=== PATIENT | female | born 1975 | race Two or more races ===

== ENCOUNTER 2022-02-04 13:27 | Outpatient (REF) | payer OTHER, SELFPAY ==
[2022-02-04 13:42] LABS: MANUAL DIFF FLAG NO
[2022-02-04 13:55] LABS: Basophils Absolute Auto 0.1 X10*3/uL (0.0-0.2); Eosinophils Absolute Auto 0.1 X10*3/uL (0.0-0.4); Eosinophils Percent Auto 1.9 % (0-4); Hemoglobin 12.5 g/dl (12.0-16.0); Imm Gran Abs Auto 0.02 X10*3/uL (0.00-0.03); Imm Gran Pct Auto 0.3 % (0.0-0.4); Lymphocytes Absolute Auto 2.2 X10*3/uL (1.2-4.9); Lymphocytes Percent Auto 35.7 % (20-40); Mean Corpuscular HGB Conc 32.1 g/dl (31.0-35.0); Mean Corpuscular Hemoglobin 28.6 pg (27.0-33.0); Mean Corpuscular Volume 89.2 fL (80.0-98.0); Mean Platelet Volume 10.4 fL (9.4-12.3); Monocytes Absolute Auto 0.4 X10*3/uL (0.1-1.2); Neutrophils Absolute Auto 3.4 x10*3/uL (2.0-8.3); Neutrophils Percent Auto 54.1 % (45-73); Platelet Count 290 X10*3/uL (160-400); Red Blood Count 4.37 X10*6/uL (4.20-5.50); Red Cell Distribution Width 12.1 % (11.0-16.0); White Blood Count 6.3 X10*3/uL (4.8-10.8)
[2022-02-04 14:08] LABS: Alanine Aminotransferase 13 U/L (0-31); Albumin Level 4.4 g/dL (3.5-5.0); Alkaline Phosphatase 65 U/L (39-117); Anion Gap 12 (12-20); Aspartate Amino Transferase 13 U/L (5-31); Bilirubin Total 0.4 mg/dL (0.0-1.0); Blood Urea Nitrogen 14 mg/dL (9-16); Calcium 9.5 mg/dL (8.4-10.2); Carbon Dioxide 28 mmol/L (22-29); Chloride 104 mmol/L (96-108); Cholesterol 244 mg/dL; Estimated Glomerular Filt Rate > 60; Glucose Fasting 82 mg/dL (60-99); HDL Cholesterol 48 mg/dL; LDL Cholesterol Calculated 167 mg/dl; Potassium 4.4 mmol/L (3.3-5.1); Sodium 140 mmol/L (135-145); Total Protein 7.6 g/dL (6.5-8.0); Triglycerides 146 mg/dL
[2022-02-04 14:28] LABS: Thyroid Stimulating Hormone 2.35 uIU/mL (0.32-4.0)
== END 2022-02-04 13:28 | disposition home or self-care (01) ==
LOC: HO.LAB 13:27
PROVIDERS: PCP Internal Medicine; Visit Provider Internal Medicine
DX: Z00.00 Encounter for general adult medical examination without abnormal findings (principal); Z13.0 Encounter for screening for diseases of the blood and blood-forming organs and certain disorders involving the immune mechanism
CPT/HCPCS: 36415; 80053; 80061; 84443; 85025

== ENCOUNTER 2023-06-13 10:47 | Outpatient (REF) | payer OTHER, SELFPAY ==
[2023-06-13 10:56] LABS: MANUAL DIFF FLAG NO
[2023-06-13 11:05] LABS: Basophils Absolute Auto 0.1 X10*3/uL (0.0-0.2); Basophils Percent Auto 0.9 % (0-2); Eosinophils Absolute Auto 0.2 X10*3/uL (0.0-0.4); Eosinophils Percent Auto 3.6 % (0-4); Hematocrit 39.8 % (37.0-47.0); Hemoglobin 13.1 g/dl (12.0-16.0); Imm Gran Abs Auto 0.02 X10*3/uL (0.00-0.03); Imm Gran Pct Auto 0.3 % (0.0-0.4); Lymphocytes Absolute Auto 2.4 X10*3/uL (1.2-4.9); Lymphocytes Percent Auto 35.9 % (20-40); Mean Corpuscular HGB Conc 32.9 g/dl (31.0-35.0); Mean Corpuscular Hemoglobin 28.7 pg (27.0-33.0); Mean Corpuscular Volume 87.3 fL (80.0-98.0); Mean Platelet Volume 9.9 fL (9.4-12.3); Monocytes Absolute Auto 0.4 X10*3/uL (0.1-1.2); Monocytes Percent Auto 6.1 % (2-11); Neutrophils Absolute Auto 3.6 x10*3/uL (2.0-8.3); Neutrophils Percent Auto 53.2 % (45-73); Platelet Count 285 X10*3/uL (160-400); Red Blood Count 4.56 X10*6/uL (4.20-5.50); Red Cell Distribution Width 12.2 % (11.0-16.0); White Blood Count 6.8 X10*3/uL (4.8-10.8)
[2023-06-13 12:20] LABS: Alanine Aminotransferase 17 U/L (0-31); Albumin Level 4.3 g/dL (3.5-5.0); Alkaline Phosphatase 68 U/L (39-117); Anion Gap 11 (12-20); Aspartate Amino Transferase 14 U/L (5-31); Bilirubin Total 0.5 mg/dL (0.0-1.0); Blood Urea Nitrogen 12 mg/dL (9-16); Calcium 9.6 mg/dL (8.4-10.2); Carbon Dioxide 26 mmol/L (22-29); Chloride 108 mmol/L (96-108); Cholesterol 322 mg/dL; Estimated Glomerular Filt Rate > 60; Glucose Fasting 94 mg/dL (60-99); HDL Cholesterol 48 mg/dL; LDL Cholesterol Calculated 244 mg/dl; Potassium 4.1 mmol/L (3.3-5.1); Sodium 141 mmol/L (135-145); Total Protein 7.6 g/dL (6.5-8.0); Triglycerides 153 mg/dL
[2023-06-13 12:34] LABS: Thyroid Stimulating Hormone 1.84 uIU/mL (0.32-4.0)
== END 2023-06-13 10:48 | disposition home or self-care (01) ==
LOC: HO.LAB 10:47
PROVIDERS: PCP Internal Medicine; Visit Provider Internal Medicine
DX: E78.5 Hyperlipidemia, unspecified (principal); N28.9 Disorder of kidney and ureter, unspecified; E03.9 Hypothyroidism, unspecified; D64.9 Anemia, unspecified
CPT/HCPCS: 36415; 80053; 80061; 84443; 85025

== ENCOUNTER 2023-06-19 12:34 | Outpatient (AMB) | payer OTHER, SELFPAY ==
--- NOTE | 2023-06-19 12:42 | A.OFFPC_ITS ---
Vital Signs 06/19/23 12:43 Height 5 ft 2.5 in Weight 176 lb 8 oz BMI 31.8 BP 130/60 Blood Pressure Location Lt brachial Position Sitting Pulse 78 Pulse Source Pulse Oximeter Pulse Oximetry (%) 98 Oxygen Delivery Method Room Air Intake Visit Reasons: Physical exam Intake Note: Patient is here today for a physical. 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 policy Accompanied by: Self / Same As Patient Allergies No Known Allergies Allergy (Verified 06/19/23 12:42) Medication List - Last Reconciled 06/19/23 by Vic Do MD albuterol sulfate 90 mcg/actuation (ProAir HFA) 2 puffs PO Q6H PRN paroxetine HCl 40 mg PO DAILY Tobacco use date assessed: 06/19/23 Dental Screening Dental Screen Date: 06/19/23 Did you have a dental visit in the last 12 months?: Yes Did you have a dental problem in the last 6 months where you did not have access to dental care?: No Was dental information given to patient?: Patient has dentist HPI Physical exam HPI Details mild asthma PFSH Medical History (Updated 06/19/23 @ 13:04 by Vic Do MD) Depression Obesity Surgical History No pertinent past surgical history Family History Mother No problems noted. Father No problems noted. Social History Housing: House Patient Tobacco Use Status: Never used Tobacco e-Cigarette/Vaping Use: Never Used Second Hand Smoke Exposure: No service: No Current occupational status: employed Cognitive needs: No Hearing needs: No Vision needs: Yes (reading glasses) Questionnaire Thrive Questionnaire Date Thrive assessed: 02/27/23 CHELSEA-7 AMB Questionnaire CHELSEA-7 Date CHELSEA - 7 assessed: 02/27/23 Source: Developed by Drs. Stefano Jeong, Shaunna Edgar, Yves Luciano and colleagues, with an educational olivier from [employer] Review of Systems Const Denies chills, Denies fatigue, Denies headache(s) and Denies weight loss Eyes Denies change in vision, Denies diplopia and Denies eye pain ENT Denies vertigo, Denies dizziness, Denies headache(s) and Denies nasal discharge Card Denies chest pain, Denies rapid heart rate and Denies dyspnea on exertion Resp Denies chest congestion, Denies cough, Denies pain with cough and Denies dyspnea on exertion GI Denies abdominal pain, Denies hematochezia and Denies change in bowel habits Musc Denies myalgias, Denies arthralgias and Denies joint swelling Skin/Breast Denies lesions and Denies unusual bruising Neuro Denies vertigo, Denies dizziness, Denies headache(s) and Denies focal weakness Endo Denies fatigue Physical exam (Primary Care) Vital Signs: Last Vital Signs Pulse 78 06/19/23 12:43 BP 130/60 06/19/23 12:43 Pulse Ox 98 06/19/23 12:43 Oxygen Delivery Method Room Air 06/19/23 12:43 BMI result Body Mass Index 31.8 Tobacco/Smoking Status: Tobacco use Status Tobacco use date assessed 06/19/23 06/19/23 12:47 Patient Tobacco Use Status Never used Tobacco 06/19/23 12:47 e-Cigarette/Vaping Use Never Used 06/19/23 12:47 Thrive Assessment: Date of Thrive Assessment Date Thrive assessed 02/27/23 06/19/23 12:47 Const General: cooperative, healthy appearing and no acute distress Orientation/consciousness: oriented to person, oriented to place and oriented to time [facility] Head: Yes normal to inspection, Yes normocephalic and Yes atraumatic Mouth: Normal oral and palatal mucosa present and tongue normal Throat: Yes posterior oropharynx normal and Yes uvula midline Eyes General: appearance normal, both eyes and all related structures Neck Neck: Yes normal visual inspection, Yes full ROM and Yes no lymphadenopathy Thyroid: Thyroid normal Carotids: normal carotid upstroke Chest Chest palpation & inspection: normal inspection of the chest Resp Effort & Inspection: normal respiratory effort and able to speak in complete sentences Auscultation: clear to auscultation bilaterally Cardio Jugular venous distension: no JVD Palpation: normal PMI Rate: regular rate Rhythm: regular rhythm Heart sounds: S1 normal heart sound present and S2 normal heart sound present GI Inspection: Yes normal to inspection Palpation (GI): Soft to palpation and No hepatosplenomegaly present Auscultation: normal bowel sounds General: Yes no CVA tenderness Back/Spine/Pelvis Back: no CVA tenderness Skin General skin exam: no rashes or lesions noted Neuro General: oriented to person, oriented to place and oriented to time Extrem General: Yes normal to inspection and Yes full ROM Assessment and Plan Assessment & Plan (1) Physical exam: Code(s): Z00.00 - Encounter for general adult medical examination without abnormal findings Plan: stable (2) Depression: Code(s): F32.A - Depression, unspecified Plan: same rx (3) Asthma: Code(s): J45.909 - Unspecified asthma, uncomplicated Plan: same rx Orders: Orders Lipid Panel Today E78.5 - Hyperlipidemia, unspecified MM tomosynthesis screen imp BI Today Z12.31 - Encounter for screening mammogram for malignant neoplasm of breast Referrals Gastroenterology Referral Z12.11 - Encounter for screening for malignant neoplasm of colon Coding Level of Care Code Est Pt Prev Care 40-64y(54575) Diagnoses Physical exam Z00.00 Depression F32.A Asthma J45.909
[2023-06-19 12:43] VITALS: BP 130/60; PULSE 78; O2SAT 98; BMI 31.8
== END 2023-06-19 12:57 | disposition home or self-care (01) ==
PROVIDERS: PCP Internal Medicine; Visit Provider Internal Medicine
DX: Z00.00 Encounter for general adult medical examination without abnormal findings (principal); F32.A Depression, unspecified; J45.909 Unspecified asthma, uncomplicated
CPT/HCPCS: 99396

== ENCOUNTER 2023-09-03 10:45 | Outpatient (AMB) | payer OTHER, SELFPAY ==
[2023-09-03 10:46] VITALS: BP 134/72; PULSE 84; O2SAT 97; BMI 31.3
--- NOTE | 2023-09-03 10:46 | A.OFFPC_ITS ---
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 policy Accompanied by: Self / Same As Patient Allergies No Known Allergies Allergy (Verified 09/03/23 10:47) Medication List - Last Reconciled 09/03/23 by Vic Do MD albuterol sulfate 90 mcg/actuation (ProAir HFA) 2 puffs PO Q6H PRN paroxetine HCl 40 mg PO DAILY Tobacco use date assessed: 06/19/23 Dental Screening Dental Screen Date: 09/03/23 Did you have a dental visit in the last 12 months?: No Did you have a dental problem in the last 6 months where you did not have access to dental care?: No Was dental information given to patient?: Patient has dentist HPI follow up HPI Details Had a FNA bx left breast at [facility] and they recommended seeing a surgeon for a Bx; I do not have any written rports on this yet [facility] Medical History Obesity Depression Surgical History No pertinent past surgical history Family History Mother No problems noted. Father No problems noted. Social History Housing: House Patient Tobacco Use Status: Never used Tobacco e-Cigarette/Vaping Use: Never Used Second Hand Smoke Exposure: No service: No Current occupational status: employed Cognitive needs: No Hearing needs: No Vision needs: Yes (reading glasses) Questionnaire PHQ-9 Over the last 2 weeks, how often have you been bothered by any of the following problems? 1. Little interest or pleasure in doing things: not at all 2. Feeling down, depressed, or hopeless: not at all 3. Trouble falling or staying asleep, or sleeping too much: not at all 4. Feeling tired or having little energy: not at all 5. Poor appetite or overeating: not at all 6. Feeling bad about yourself - or that you are a failure or have let yourself or your family down: not at all 7. Trouble concentrating on things, such as reading the newspaper or watching television: not at all 8. Moving or speaking so slowly that other people could have noticed. Or the opposite - being so fidgety or restless that you have been moving around a lot more than usual: not at all 9. Thoughts that you would be better off or of hurting yourself in some way: not at all Total score: 0 Depression Screening Interpretation: Negative Depression Screening Done: Yes 81426 - PHQ-9 Billing: Yes Source: Developed by Drs. Stefano Jeong, Shaunna Edgar, Yves Luciano and colleagues, with an educational olivier from [employer]. Thrive Questionnaire Date Thrive assessed: 02/27/23 AUDIT C Alcohol Use Questionnaire (AUDIT-C) 1. How often do you have a drink containing alcohol?: Never Total Score: 0 Score Reviewed/Action Taken: Yes CHELSEA-7 AMB Questionnaire CHELSEA-7 Date CHELSEA - 7 assessed: 02/27/23 Source: Developed by Drs. Stfeano Jeong, Shaunna Edgar, Yves Luciano and colleagues, with an educational olivier from [employer]. Review of Systems Const Denies chills, Denies headache(s) and Denies weight loss ENT Denies headache(s) Card Denies chest pain, Denies syncope, Denies irregular heart rhythm and Denies dyspnea Resp Denies chest congestion, Denies cough and Denies dyspnea GI Denies abdominal pain, Denies change in stool character, Denies nausea and Denies vomiting Musc Denies deformity and Denies joint swelling Neuro Denies syncope and Denies headache(s) Physical exam (Primary Care) Vital Signs: Last Vital Signs Pulse 84 09/03/23 10:46 BP 134/72 09/03/23 10:46 Pulse Ox 97 09/03/23 10:46 Oxygen Delivery Method Room Air 09/03/23 10:46 BMI result Body Mass Index 31.3 Tobacco/Smoking Status: Tobacco use Status Tobacco use date assessed 06/19/23 09/03/23 10:52 Patient Tobacco Use Status Never used Tobacco 09/03/23 10:52 e-Cigarette/Vaping Use Never Used 09/03/23 10:52 PHQ-9: PHQ-9 Score PHQ-9: Total score 0 09/03/23 10:52 Depression Screening Interpretation: Negative Thrive Assessment: Date of Thrive Assessment Date Thrive assessed 02/27/23 09/03/23 10:52 Const General: cooperative, comfortable and no acute distress HENMT Head: Yes normal to inspection Neck Neck: Yes normal visual inspection Chest Other: healing FNA site 12:00 left breast Assessment and Plan Assessment & Plan (1) Breast lesion: Code(s): N64.9 - Disorder of breast, unspecified Orders: Referrals General Surgery Referral N64.9 - Disorder of breast, unspecified Coding Level of Care Code Est Pt Level 3 (84746) Diagnoses Breast lesion N64.9
== END 2023-09-03 11:15 | disposition home or self-care (01) ==
PROVIDERS: PCP Internal Medicine; Visit Provider Internal Medicine
DX: N64.9 Disorder of breast, unspecified (principal)
CPT/HCPCS: 99213

== ENCOUNTER 2023-09-22 08:54 | Outpatient (AMB) | payer OTHER, SELFPAY ==
--- NOTE | 2023-09-22 08:57 | A.OFFVIS_ITS ---
Intake Vital Signs 3 09/22/23 09:03 Height 5 ft 2.5 in Weight 173 lb 15.821 oz BMI 31.3 BP 120/80 Blood Pressure Location Lt brachial Position Sitting Intake Visit Reasons: Disorder of breast Intake Note: Patient is seen in office for evaluation and treatment of disorder of the breast. 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 She subsequently [place] [facility] [place] pathology revealed focal atypical lobular hyperplasia. Surgical consultation was recommended. She reports a previous history of abnormal findings on her mammogram which was followed for several years with q.6 month x-rays. The current findings were felt to be significant change in felt to be high suspicion for malignancy therefore biopsy was recommended. She denies a previous history of breast surgery. She denies a family history of breast problems or breast cancer. She is with 1 daughter, 28 years old. She did not breast feed. [facility] [place] She presents today to discuss management of the atypical lobular hyperplasia. [facility] Medical History Obesity Depression Surgical History No pertinent past surgical history Family History Mother Skin cancer Father Stomach cancer Social History Housing: House Patient Tobacco Use Status: Never used Tobacco e-Cigarette/Vaping Use: Never Used Second Hand Smoke Exposure: No service: No Current occupational status: employed Cognitive needs: No Hearing needs: No Vision needs: Yes (reading glasses) Review of Systems Const All systems reviewed & are unremarkable except as noted in HPI and below Denies chills, Denies fever(s), Denies headache(s), Denies poor appetite and Denies weakness ENT Denies headache(s) Card Denies chest pain, Denies irregular heart rhythm, Denies palpitations and Denies dyspnea Resp Denies cough, Denies excessive phlegm production and Denies dyspnea GI Denies abdominal pain, Denies bloating, Denies change in bowel habits, Denies constipation, Denies heartburn, Denies diarrhea, Denies nausea and Denies vomiting Denies urinary frequency and Denies nipple discharge Musc Denies back pain, Denies muscle weakness and Denies numbness Skin/Breast Denies breast swelling, Reports breast pain, Denies breast mass, Denies changing lesions, Denies nipple discharge and Denies unusual bruising Neuro Denies headache(s), Denies numbness, Denies paresthesias and Denies weakness Psych Denies anxiety and Denies depression Endo Denies palpitations Giovanny/Lymph Denies lymphadenopathy Physical Exam Vital Signs: Last Vital Signs BP 120/80 09/22/23 09:03 BMI result Body Mass Index 31.3 Const General: cooperative and no acute distress Nutritional Appearance: well nourished Orientation/consciousness: patient oriented x3 Limitations: no limitations HEENT Head: Yes normocephalic and Yes atraumatic Ears: hearing grossly normal bilaterally Chest Other: Left breast: No skin change, no nipple retraction, no nipple discharge, no palpable mass, no enlarged lymph nodes. Right breast: No skin change, no nipple retraction, no nipple discharge, no palpable mass, no enlarged lymph nodes Chest/axillae images: 2 1. Biopsy site left breast Resp Effort & Inspection: normal respiratory effort, no audible wheezes, no cough and no respiratory distress Cardio Jugular venous distension: no JVD GI Inspection: Yes normal to inspection Skin Other: Warm, dry, no rash Neuro General: patient oriented x3 Extrem General: Yes no clubbing, cyanosis or edema Assessment & Plan Assessment & Plan (1) Atypical lobular hyperplasia (ALH) of left breast: Code(s): N60.92 - Unspecified benign mammary dysplasia of left breast Plan 48-year-old female patient presenting with a recent cluster of calcifications noted on mammogram felt to be high suspicion for malignancy. Subsequent stereotactic guided core biopsy of the left breast on 08/28/2023 revealed focal atypical lobular hyperplasia. On examination no suspicious findings are noted in either breast. I reviewed atypical lobular hyperplasia and recommended wider excision to assure complete removal. After discussion of the procedure, risks, and alternatives, patient has consented to a left breast lumpectomy with localizer placement as a short-stay surgery. Coding Level of Care Code New Pt Level 4 (75198) Diagnoses Atypical lobular hyperplasia (ALH) of left breast N60.92
[2023-09-22 09:03] VITALS: BP 120/80; BMI 31.3
== END 2023-09-22 09:34 | disposition home or self-care (01) ==
PROVIDERS: PCP Internal Medicine; Referring Provider Internal Medicine; Visit Provider Surgery
DX: N60.92 Unspecified benign mammary dysplasia of left breast (principal)
CPT/HCPCS: 99204

== ENCOUNTER → 2023-09-22 08:54 | Outpatient (BNVA) | payer OTHER, SELFPAY | PROVIDERS: PCP Internal Medicine; Referring Provider Internal Medicine; Visit Provider Surgery ==

== ENCOUNTER 2023-09-28 07:53 | Outpatient (REF) | payer OTHER, SELFPAY ==
--- NOTE | ~2023-09-28 | MM_ITS ---
EXAMINATION: MM MAMMOGRAM GUIDED RFID LOCALIZATION BREAST, LEFT CLINICAL INFORMATION: LCIS left breast upper slightly outer aspect, middle to anterior one third. Marked by a cylinder-shaped clip, for RFID localization. COMPARISON: 08/28/2023 stereotactic left breast biopsy. Mammography 07/15/2023, 07/04/2023, 12/15/2020, and 10/27/2018. TECHNIQUE NEEDLE LOC: Proper informed consent is obtained from the patient after discussion of the procedure, potential risks and complications, and alternatives including declining the procedure today. Patient was given an opportunity for questions. The patient appeared to understand. The patient consented to the procedure and signed the consent form. GUIDANCE: Digital mammography. APPROACH: Cranio-caudal. TARGET: Cylinder-shaped clip with a few remaining abutting calcifications. ANESTHESIA: lidocaine 1% with 1 mL bicarbonate: 10 mL. LOCALIZATION SYSTEM: -GetBulb LOCallizer Wire-Free Guidance System with 12g needle applicator. -Length: 7 cm. -RADIOFREQUENCY TAG: ID # [id number] DERMATOTOMY: Not necessary. RF Tag ID confirmed with LOCalizer Guidance System prior to placement. The skin is prepped and local anesthesia administered. The needle is positioned and RFID tag deployed. Final images demonstrate the LOCalizer RF tag to reside immediately anterior to the biopsy clip by approximately 3 mm. This is in good/acceptable position. The tag abuts a few remaining anterior calcifications. The patient tolerated the procedure well and had no immediate complications. Dressing placed and home instructions reviewed. MM/MM needle loc LT IMPRESSION: -Status post left breast RFID localization. Well-positioned RFID tag. No complications. -Final CC and ML images are marked/labeled for OR assistance.
[2023-09-28] MEDS: Lidocaine HCl 1 % 20 ML VIAL 9 ML SUBCUT (09:20)
[2023-09-28] MEDS: Sodium Bicarbonate 8.4% 50 MEQ/50 ML VIAL SUBCUT (09:21)
== END 2023-09-28 07:54 | disposition home or self-care (01) ==
LOC: HO.MAMMO 07:53
PROVIDERS: Visit Provider Surgery
DX: N60.92 Unspecified benign mammary dysplasia of left breast (principal)
CPT/HCPCS: 19281; C1819

== ENCOUNTER 2023-10-07 06:12 | Day surgery (SDC) | payer OTHER, SELFPAY ==
[2023-10-05 10:52] VITALS: BMI 31.3
--- NOTE | 2023-10-06 09:18 | HO.ANESPROP2 ---
HPI - Anesthesia Eval Consult details Narrative: 48yo F for Left Breast Lumpectomy w/LOCalizer PMFSH Active Problems Active Problems: All Active Problems (Updated 10/05/23 @ 10:53 by Jazz Puri RN) Atypical lobular hyperplasia (ALH) of left breast (Acute) Asthma (Acute) Physical exam (Acute) Obesity (Acute) Depression (Acute) Past Medical History Medical History Asthma Obesity Depression Family History Family History Mother Skin cancer Father Stomach cancer Surgical History Surgical History No pertinent past surgical history Social History Housing: House Patient Tobacco Use Status: Never used Tobacco e-Cigarette/Vaping Use: Never Used Second Hand Smoke Exposure: No service: No Current occupational status: employed Cognitive needs: No Hearing needs: No Vision needs: Yes (reading glasses) Meds Allergies Allergy/AdvReac Type Severity Reaction Status Date / Time No Known Allergies Allergy Verified 09/22/23 09:03 Exam Exam Date and Time: October 06, 2023 0918 Height,Weight and Vital Signs: Height 5 ft 2.5 in Weight 78.925 kg Pertinent Lab Results Pertinent Lab Results: Laboratory Tests 06/13/23 10:55 WBC 6.8 Hgb 13.1 Hct 39.8 Plt Count 285 Sodium 141 Potassium 4.1 Chloride 108 Carbon Dioxide 26 BUN 12 Creatinine 0.79 Assessment and Plan Assessment Anesthesia Assessment: Chart Reviewed
[2023-10-07] VITALS (10 sets, daily range): BP systolic 132–166; BP diastolic 72–98; PULSE 65–80; RESP 16; TEMP 36.5–36.8; O2SAT 97–98; BMI 31.3
--- NOTE | ~2023-10-07 | MM_ITS ---
CLINICAL INDICATION: Specimen radiograph for lobular carcinoma, localized biopsy tissue marker in the and residual calcifications of the upper outer quadrant left breast. COMPARISON: 09/28/2023 mammographic needle localization images TECHNIQUE: Single radiograph of the excised breast tissue is performed using digital mammography. FINDINGS: Specimen radiograph demonstrates the RFID device, the biopsy tissue marker biopsy and residual calcifications.. Results were relayed to the breast surgeon in the operating room at the time of imaging. MM/MM surgical specimen IMPRESSION: Documentation of successful excision of intended targets of biopsy tissue marker, are 5D localization device and residual calcifications with specimen mammography.
[2023-10-07] MEDS: Lactated Ringers 1,000 ML 100 ML IVCONT (06:55)
--- NOTE | 2023-10-07 07:31 | HO.ANESPROP2 ---
[facility] Active Problems Active Problems: All Active Problems (Updated 10/05/23 @ 10:53 by Jazz Puri RN) Atypical lobular hyperplasia (ALH) of left breast (Acute) Asthma (Acute) Physical exam (Acute) Obesity (Acute) Depression (Acute) Past Medical History Medical History Asthma Obesity Depression Functional capacity: independent ambulation Patient : No Family History Family History Mother Skin cancer Father Stomach cancer Family history of problems with anesthesia: No Surgical History Surgical History No pertinent past surgical history History of Problems with Anesthesia: No Social History Social History Housing: House Patient Tobacco Use Status: Never used Tobacco e-Cigarette/Vaping Use: Never Used Second Hand Smoke Exposure: No Use of substances other than those prescribed or required for medical reasons: No Are you DNR?: No Advance Directives: No Advance Directives Information Provided: Yes Advance Directives on File: No service: No Current occupational status: employed Cognitive needs: No Hearing needs: No Vision needs: Yes (reading glasses) Meds Allergies Allergy/AdvReac Type Severity Reaction Status Date / Time No Known Allergies Allergy Verified 09/22/23 09:03 Active Medications: Current Medications Albuterol Sulfate (Albuterol Sulfate (0.083%) 2.5 Mg/3 Ml Vial.Neb) 2.5 mg INHALE ONCE PRN PRN Reason: Shortness of Breath/Wheezing Lactated Ringer's (Lr) 1,000 mls @ 100 mls/hr IVCONT .Q10H KATYA Last Admin: 10/07/23 06:55 Dose: 100 mls/hr Exam Exam Date and Time: October 07, 202331 Height,Weight and Vital Signs: Height 5 ft 2.5 in Weight 78.982 kg Last Vital Signs Temp 97.9 F 10/07/23 06:42 Pulse 80 10/07/23 06:42 Resp 16 10/07/23 06:42 BP 156/78 H 10/07/23 06:42 Pulse Ox 98 10/07/23 06:42 O2 Del Method Room Air 10/07/23 06:42 Airway Mallampati Class: II TM Dist: >3cm Neck ROM: Full Heart: RRR Lungs: CTA Assessment and Plan Final Anesthetic Review Family History of Problems with Anesthesia: No History of Problems with Anesthesia: No ASA Class: II Final Preanesthetic Review: Meds/Allgs Chart Reviewed, Consent Obtained/Reviewed and Anes Risks/Benef Reviewed Patient Risk: Low Procedure Risk: Low Anesthetic Plan Anesthetic Plan: GA Disposition: Standard PACU
--- NOTE | 2023-10-07 07:32 | MHC.SHP ---
Pre-Procedural Eval Section A Date of Service: 10/07/23 The patient is an INPATIENT: No Changes since office visit: Yes Patient answered all questions; No Cold of Flu in the past 2 weeks, No New Medical Problems and No Changes in Medication The History & Physical has been completed within 30 days and I have reviewed it.: Yes Section B Chief Complaint: Unspecified benign mammary dysplasia of left breas Allergies: Allergies Allergy/AdvReac Type Severity Reaction Status Date / Time No Known Allergies Allergy Verified 09/22/23 09:03 Plan Diagnosis/Plan: Unchanged I have reviewed the history and physical and performed a pertinent physical examination on my patient. No changes have occurred unless specified. Time Spent With Patient Time: Total time managing care of this patient today ____ minutes.
--- NOTE | 2023-10-07 08:47 | W.PM.OPN ---
Operative Note Operative Note Date of Service: 10/07/23 Narrative: Preoperative diagnosis:Atypical lobular hyperplasia left breast Postoperative diagnosis: same Procedure: left breast lumpectomy with localizer Surgeon: Arnoldo Cueva MD Bleach Machine Operator: Celia Antonio PA-C Anesthesia: general LMA Indications for procedure: 48-year-old female patient found to have a cluster of calcifications in the upper outer quadrant of the left breast noted on a screening mammogram and confirmed on diagnostic imaging. Patient underwent stereotactic guided core biopsy [place] [facility] [place] which was positive for atypical lobular hyperplasia of the left breast. Wider excision was recommended due to the remaining calcifications in the upper outer quadrant. Operative findings: Specimen x-ray confirmed the LOCalizer and marking clip within the specimen. Multiple additional calcifications were also noted in the specimen x-ray. Specimen: Left breast atypical lobular hyperplasia Estimated blood loss: 2 mL Complications: none Procedure details: patient was brought to the OR placed in a supine position. After administering general anesthesia patient's left breast was prepped with ChloraPrep and draped in a sterile fashion. A surgical time-out was called the consent confirmed. Patient received preoperative antibiotics and Venodyne boots were in place. Local anesthesia consisting of 0.5% Sensorcaine with epinephrine was then infiltrated in a circumareolar location. This was in the 1 to 3 o'clock position. The incision was carried out through subcutaneous tissue using electrocautery. Superior and inferior skin flaps were then created. Using the LOCalizer as a guide a core of tissue surrounding the marking clip was then obtained using electrocautery. The excision continued down to chest wall and the specimen completely removed. Specimen was marked with a short suture on the superior margin, long suture on the lateral margin, and loop suture in the deep margin. Specimen was x-rayed in the room which confirmed the marking clip and localizer clip within the specimen. Additionally, microcalcifications were noted throughout the specimen. This was then sent to pathology for immediate gross pathology. Wounds were then irrigated with saline solution and suctioned dry. Hemostasis was assured using electrocautery. Deep breast tissue was then reapproximated using interrupted 3-0 Polysorb sutures. Dermis was reapproximated using interrupted 3-0 Polysorb sutures. Skin was closed using a running subcuticular 4-0 Polysorb suture. Steri-Strips, 2 x 2 gauze and Tegaderm were then applied. The patient tolerated the procedure well. Sponge, instrument, needle counts reported as correct. The patient was transferred to PACU in stable condition.
[2023-10-07] MEDS: Acetaminophen 1,000 MG/100 ML PIGGYBACK 400 MG IV (09:17)
[2023-10-07] MEDS: fentaNYL citrate/PF 100 MCG/2 ML VIAL 25 MCG IVPUSH ×2 (09:17→09:25)
[2023-10-07] MEDS: oxyCODONE HCl Immed Release 5 MG TABLET PO (09:26)
--- NOTE | 2023-10-07 11:07 | HO.POSTANES ---
Post Anesthesia Evaluation Post Anesthesia Evaluation Date of Service: 10/07/23 Vital Signs: Vital Signs Temp Pulse Resp BP Pulse Ox O2 Del Method 10/07/23 09:56 98.3 F 66 16 136/78 98 Room Air 10/07/23 09:41 70 16 132/76 98 Room Air 10/07/23 09:27 69 16 153/83 H 97 Room Air 10/07/23 09:22 79 16 152/80 H 97 Room Air 10/07/23 09:17 67 16 163/94 H 97 Room Air 10/07/23 09:11 74 16 157/82 H 97 Room Air 10/07/23 09:06 65 16 159/72 H 97 Room Air 10/07/23 09:01 72 16 166/98 H 97 Room Air 10/07/23 08:56 97.7 F 79 16 147/77 H 98 Room Air 10/07/23 06:42 97.9 F 80 16 156/78 H 98 Room Air Anesthesia: General LMA Mental Status: Awake Pain Control: Satisfactory Nausea/Vomiting: None Hydration: Adequate Anesthesia-Related Issues: No Anes. Related Issues
== END 2023-10-07 10:48 | disposition home or self-care (01) ==
PROVIDERS: PCP Internal Medicine; Referring Provider Surgery; Visit Provider Surgery
PROC: (CPT 19301; principal; 2023-10-07 07:30)
DX: D05.02 Lobular carcinoma in situ of left breast (principal); N60.92 Unspecified benign mammary dysplasia of left breast; E66.9 Obesity, unspecified; Z68.31 Body mass index [BMI] 31.0-31.9, adult; Z79.899 Other long term (current) drug therapy; F32.A Depression, unspecified
CPT/HCPCS: 19301; 88307; 88329; J0131; J0665; J0690; J1100; J2250; J2405; J2704; J3010

== ENCOUNTER → 2023-10-07 06:12 | Outpatient (BNV) | payer OTHER, SELFPAY | PROVIDERS: PCP Internal Medicine; Visit Provider Surgery | DX: N60.92 Unspecified benign mammary dysplasia of left breast (principal) | CPT/HCPCS: 19301 ==

== ENCOUNTER 2023-10-19 09:34 | Outpatient (AMB) | payer OTHER, SELFPAY ==
--- NOTE | 2023-10-19 09:43 | A.OFFVIS_ITS ---
Intake Vital Signs 3 10/19/23 09:44 Weight 176 lb 5.917 oz BP 120/80 Blood Pressure Location Rt brachial Position Sitting Pulse 80 Intake Visit Reasons: S/P Lt breast lumpectomy w/localizer Intake Note: Patient here s/p Lt breast lumpectomy w/localizer on 10-07-23. Lt breast exc site healing well. C/o pain. Taking tylenol as needed. Certified Pharmacy Tech Required: No Accompanied by: Daughter Allergies No Known Allergies Allergy (Verified 10/19/23 09:45) Medication List - Last Reconciled 10/19/23 by Arnoldo Cueva MD albuterol sulfate 90 mcg/actuation (ProAir HFA) 2 puffs PO Q6H PRN paroxetine HCl 40 mg PO DAILY HPI HPI Comments 2 History of Present Illness0 Details 48-year-old female patient presenting wi th a recent mammogram which revealed a cluster of calcifications in the left breast and retroareolar location 12:00 o'clock position. She subsequently underwent a stereotactic guided core biopsy on 08/28/2023 at [facility]. Subsequent pathology revealed focal atypical lobular hyperplasia. Surgical consultation was recommended as multiple microcalcifications remained by mammogram. She reports a previous history of abnormal findings on her mammogram which was followed for several years with q.6 month x-rays. The current findings were felt to be a significant change and felt to be high suspicion for malignancy. She denies a previous history of breast surgery. She denies a family history of breast problems or breast cancer. She is with 1 daughter, 28 years old. She did not breast feed. [facility] [place] [place] She subsequent underwent left breast lumpectomy with localizer 1 week ago (10/12/2023). She tolerated the procedure well but does report some pain in the incision well using the arm. She does not feel she could return to work because of the heavy lifting. 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 [facility] Medical History Asthma Obesity Depression Surgical History History of lumpectomy of left breast (10/07/23) No pertinent past surgical history Family History Mother Skin cancer Father Stomach cancer Housing: House Patient Tobacco Use Status: Never used Tobacco e-Cigarette/Vaping Use: Never Used Second Hand Smoke Exposure: No service: No Current occupational status: employed Cognitive needs: No Hearing needs: No Vision needs: Yes (reading glasses) Physical Exam Vital Signs: Last Vital Signs Pulse 80 10/19/23 09:44 BP 120/80 10/19/23 09:44 Const General: healthy appearing and no acute distress Nutritional Appearance: well nourished Orientation/consciousness: patient oriented x3 Limitations: no limitations Chest Other: Left breast: Periareolar incision in the upper outer quadrant is clean, dry and intact. No palpable hematoma or seroma is identified. Skin edges are healing well. Chest/axillae images: 2 1. Incision upper outer quadrant left breast Resp Effort & Inspection: normal respiratory effort, no audible wheezes, no cough and no respiratory distress GI Inspection: Yes normal to inspection Skin Other: Warm, dry, no rash Neuro General: patient oriented x3 Extrem Other: No edema Assessment & Plan Assessment & Plan (1) Atypical lobular hyperplasia (ALH) of left breast: Code(s): N60.92 - Unspecified benign mammary dysplasia of left breast (2) Lobular carcinoma in situ (LCIS) of left breast: Code(s): D05.02 - Lobular carcinoma in situ of left breast (3) At high risk for breast cancer: Code(s): Z91.89 - Other specified personal risk factors, not elsewhere classified Plan Patient returns 1 week following left breast lumpectomy with localizer. She tolerated the procedure well but is having some discomfort associated with the incision. I recommended starting Motrin p.r.n. pain. If this does not improve her pain she should call. I recommended a follow-up examination in 1 month. I also discussed oncology consultation for risk reduction. She expressed understanding and agrees with the plan. We also discussed obtaining breast MRI alternating with mammogram every 6 months given her high risk for breast cancer. She also agrees with this plan. Orders: Referrals 2 Hematology & Oncology Referral D05.02 - Lobular carcinoma in situ of left breast, N60.92 - Unspecified benign mammary dysplasia of left breast Coding Level of Care Code Global (36162) Diagnoses Atypical lobular hyperplasia (ALH) of left breast N60.92 Lobular carcinoma in situ (LCIS) of left breast D05.02 At high risk for breast cancer Z91.89
[2023-10-19 09:44] VITALS: BP 120/80; PULSE 80
== END 2023-10-19 10:18 | disposition home or self-care (01) ==
PROVIDERS: PCP Internal Medicine; Visit Provider Surgery
DX: N60.92 Unspecified benign mammary dysplasia of left breast (principal); D05.02 Lobular carcinoma in situ of left breast; Z91.89 Other specified personal risk factors, not elsewhere classified
CPT/HCPCS: 99024

== ENCOUNTER → 2023-10-19 09:34 | Outpatient (BNVA) | payer OTHER, SELFPAY | PROVIDERS: PCP Internal Medicine; Visit Provider Surgery ==

== ENCOUNTER → 2023-10-28 08:00 | Outpatient (BNV) | payer OTHER, SELFPAY | PROVIDERS: PCP Internal Medicine; Visit Provider Internal Medicine | DX: D05.02 Lobular carcinoma in situ of left breast (principal) | CPT/HCPCS: 99204; 99214 ==

== ENCOUNTER 2023-10-29 13:27 | Outpatient (AMB) | payer OTHER, SELFPAY ==
--- NOTE | 2023-10-29 13:31 | MHC.OFFVIS ---
Intake Vital Signs 10/29/23 13:37 Height 5 ft 4 in Weight 177 lb 2 oz BMI 30.4 BP 150/78 H Blood Pressure Location Lt brachial Position Sitting Pulse 95 Intake Visit Reasons: Wound check, pain and redness Intake Note: Patient is seen in office for wound check, post left lumpectomy. 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 This began over the weekend but has now improved although she continues to have pain in the left breast. She denies fever or chills but does report pain with ambulation. She was evaluated by Dr. Elise is awaiting bone study and genetic testing. [facility] Medical History Asthma Obesity Depression Surgical History History of lumpectomy of left breast (10/07/23) No pertinent past surgical history Family History Mother Skin cancer Father Stomach cancer Social History Housing: House Patient Tobacco Use Status: Never used Tobacco e-Cigarette/Vaping Use: Never Used Second Hand Smoke Exposure: No service: No Current occupational status: employed Cognitive needs: No Hearing needs: No Vision needs: Yes (reading glasses) Physical Exam Vital Signs: Last Vital Signs Pulse 95 10/29/23 13:37 BP 150/78 H 10/29/23 13:37 BMI result Body Mass Index 30.4 Const General: no acute distress Nutritional Appearance: well nourished Orientation/consciousness: patient oriented x3 Chest Other: Left breast incision and a periareolar location at the upper outer quadrant is clean and intact. No redness is appreciated. No hematoma or seroma palpable. No discharge noted from the incision. Skin Other: Warm, dry, no rash Neuro General: patient oriented x3 Assessment & Plan Assessment & Plan (1) Lobular carcinoma in situ (LCIS) of left breast: Code(s): D05.02 - Lobular carcinoma in situ of left breast Plan patient presents with her daughter today with reports of redness in the left breast over the weekend with increased swelling suggestive of an underlying cellulitis. Examination currently reveals no redness but residual tenderness. This may have been a reaction to the skin prep or a transient contact dermatitis. I recommended a short course of oral antibiotics and will have her return in several weeks. Medications: New oxycodone 5 mg PO Q6H PRN 15 tabs 0RF pain (scale score 7-10) D05.02 - Lobular carcinoma in situ of left breast doxycycline hyclate 100 mg PO BID 14 tabs 0RF D05.02 - Lobular carcinoma in situ of left breast Coding Level of Care Code Global (05967) Diagnoses Lobular carcinoma in situ (LCIS) of left breast D05.02
[2023-10-29 13:37] VITALS: BP 150/78; PULSE 95; BMI 30.4
== END 2023-10-29 14:02 | disposition home or self-care (01) ==
PROVIDERS: PCP Internal Medicine; Visit Provider Surgery
DX: D05.02 Lobular carcinoma in situ of left breast (principal)
CPT/HCPCS: 99024

== ENCOUNTER → 2023-10-29 13:27 | Outpatient (BNVA) | payer OTHER, SELFPAY | PROVIDERS: PCP Internal Medicine; Visit Provider Surgery ==

== ENCOUNTER 2023-11-19 10:44 | Outpatient (REF) | payer OTHER, SELFPAY ==
[2023-11-19 13:02] LABS: Cholesterol 291 mg/dL (<200); HDL Cholesterol 48 mg/dL (>40)
[2023-11-19 13:04] LABS: LDL Cholesterol Calculated 206 mg/dL (<100); Triglycerides 185 mg/dL (<150)
== END 2023-11-19 10:45 | disposition home or self-care (01) ==
LOC: HO.LAB 10:44
PROVIDERS: PCP Internal Medicine; Visit Provider Internal Medicine
DX: E78.5 Hyperlipidemia, unspecified (principal); N60.92 Unspecified benign mammary dysplasia of left breast; D05.02 Lobular carcinoma in situ of left breast
CPT/HCPCS: 36415; 80061

== ENCOUNTER 2023-11-19 10:44 | Outpatient (AMB) | payer OTHER, SELFPAY ==
--- NOTE | 2023-11-19 10:50 | MHC.OFFVIS ---
Intake Vital Signs 11/19/23 10:53 Height 5 ft 4 in Weight 175 lb BMI 30.0 BP 138/76 Blood Pressure Location Rt brachial Position Sitting Pulse 99 Intake Visit Reasons: 1 mth follow up Lt breast lumpectomy w/localizer Intake Note: Patient is seen in office for one month follow up visit, post left breast lumpectomy. Pt c/o: tenderness. Incision healing well. [place]:10/27/23. Awaiting on bone density scan scheduled on 11/25/22. 3D Modeler Required: No Accompanied by: Daughter Allergies No Known Allergies Allergy (Verified 11/19/23 10:52) Medication List - Last Reconciled 11/19/23 by Arnoldo Cueva MD albuterol sulfate 90 mcg/actuation (ProAir HFA) 2 puffs PO Q6H PRN paroxetine HCl 40 mg PO DAILY HPI HPI Comments History of Present Illness Details 48-year-old female patient found to have a cluster of calcifications in the left breast in the retroareolar location, 12:00 o'clock and subsequently underwent a stereotactic guided core biopsy on 08/28/2023 at [facility]. Pathology revealed focal atypical lobular hyperplasia. Residual calcifications were noted in the postprocedure mammogram and surgical consultation was recommended. She subsequently underwent a left breast lumpectomy LOCalizer on 10/12/2023. 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 Medical oncology evaluation was recommended and she was seen by Dr. Elise. A bone evaluation is underway and she will be either placed on tamoxifen or aromatase inhibitor based on the results of this testing. She was seen 2 weeks ago and developed some redness and swelling in the left breast around the incision and nipple area. Although there was no evidence of an abscess or cellulitis she was placed on a short course of antibiotics. She returns today and feels much improved with no further redness, discharge, and minimal tenderness around the incision. MRI was ordered on her last visit but is yet to be obtained. She does not feel ready to return to work yet but feels she may need another 2 weeks to recover. She denies a family history of breast problems or breast cancer. She is with 1 daughter, 29 years old. She did not breast feed. [place] [facility] Medical History Asthma Obesity Depression Surgical History History of lumpectomy of left breast (10/07/23) No pertinent past surgical history Family History Mother Skin cancer Father Stomach cancer Social History Housing: House Patient Tobacco Use Status: Never used Tobacco e-Cigarette/Vaping Use: Never Used Second Hand Smoke Exposure: No service: No Current occupational status: employed Cognitive needs: No Hearing needs: No Vision needs: Yes (reading glasses) Physical Exam Vital Signs: Last Vital Signs Pulse 99 11/19/23 10:53 BP 138/76 11/19/23 10:53 BMI result Body Mass Index 30.0 Const General: no acute distress Nutritional Appearance: well nourished Orientation/consciousness: patient oriented x3 Chest Other: Left breast incision and a periareolar location at the upper outer quadrant is clean and intact. No redness is appreciated. No hematoma or seroma palpable. No discharge noted from the incision. Chest/axillae images: 1. Well-healed incision in the periareolar location; no redness, no discharge, no fluctuance. GI Inspection: Yes normal to inspection Skin Other: Warm, dry, no rash General skin exam: no rashes or lesions noted Neuro General: patient oriented x3 Extrem General: Yes no clubbing, cyanosis or edema Assessment & Plan Assessment & Plan (1) At high risk for breast cancer: Code(s): Z91.89 - Other specified personal risk factors, not elsewhere classified (2) Lobular carcinoma in situ (LCIS) of left breast: Code(s): D05.02 - Lobular carcinoma in situ of left breast (3) Atypical lobular hyperplasia (ALH) of left breast: Code(s): N60.92 - Unspecified benign mammary dysplasia of left breast Plan Patient feels improved with decreased pain in the left breast. Incision is clean and intact without evidence of infection. She will continue on a high risk protocol with twice yearly clinical breast examinations, yearly mammogram alternating every 6 months with breast MRI. She is welcome to call sooner for any new concerns. Coding Level of Care Code Global (09172) Diagnoses At high risk for breast cancer Z91.89 Lobular carcinoma in situ (LCIS) of left breast D05.02 Atypical lobular hyperplasia (ALH) of left breast N60.92
[2023-11-19 10:53] VITALS: BP 138/76; PULSE 99
== END 2023-11-19 11:12 | disposition home or self-care (01) ==
PROVIDERS: PCP Internal Medicine; Visit Provider Surgery
DX: Z91.89 Other specified personal risk factors, not elsewhere classified (principal); D05.02 Lobular carcinoma in situ of left breast; N60.92 Unspecified benign mammary dysplasia of left breast
CPT/HCPCS: 99024

== ENCOUNTER 2023-11-25 13:46 | Outpatient (REF) | payer OTHER, SELFPAY | END 2023-11-25 13:47 | disposition home or self-care (01) | LOC: HO.MAMMO 13:46 | PROVIDERS: PCP Internal Medicine; Visit Provider Internal Medicine | DX: Z13.820 Encounter for screening for osteoporosis (principal); M85.80 Other specified disorders of bone density and structure, unspecified site; Z78.0 Asymptomatic menopausal state | CPT/HCPCS: 77080 ==

== ENCOUNTER 2023-12-21 14:26 | Outpatient (AMB) | payer OTHER, SELFPAY ==
[2023-12-21 14:28] VITALS: BP 132/80; PULSE 81; O2SAT 98; BMI 30.2
--- NOTE | 2023-12-21 14:28 | MHC.PC.OV ---
Vital Signs 12/21/23 14:28 Height 5 ft 4 in Weight 176 lb BMI 30.2 BP 132/80 Blood Pressure Location Lt brachial Position Sitting Pulse 81 Pulse Source Pulse Oximeter Pulse Oximetry (%) 98 Oxygen Delivery Method Room Air Intake Visit Reasons: 6mth f/u Client Service Administrator Required: No Sample Driller: Present Accompanied by: Daughter Allergies No Known Allergies Allergy (Verified 12/21/23 14:28) Medication List - Last Reconciled 12/22/23 by Vic Do MD albuterol sulfate 90 mcg/actuation (ProAir HFA) 2 puffs PO Q6H PRN paroxetine HCl 40 mg PO DAILY Tobacco use date assessed: 12/21/23 Dental Screening Dental Screen Date: 12/21/23 Did you have a dental visit in the last 12 months?: No Did you have a dental problem in the last 6 months where you did not have access to dental care?: No Was dental information given to patient?: Patient has dentist HPI 6mth f/u HPI Details depression on rx; has had weight gain on rx and would like to change rx PFSH Medical History Asthma Obesity Depression Surgical History History of lumpectomy of left breast (10/07/23) No pertinent past surgical history Family History Mother Skin cancer Father Stomach cancer Social History Housing: House Patient Tobacco Use Status: Never used Tobacco e-Cigarette/Vaping Use: Never Used Second Hand Smoke Exposure: No service: No Current occupational status: employed Cognitive needs: No Hearing needs: No Vision needs: Yes (reading glasses) Questionnaire PHQ-9 Over the last 2 weeks, how often have you been bothered by any of the following problems? 1. Little interest or pleasure in doing things: not at all 2. Feeling down, depressed, or hopeless: not at all 3. Trouble falling or staying asleep, or sleeping too much: not at all 4. Feeling tired or having little energy: not at all 5. Poor appetite or overeating: not at all 6. Feeling bad about yourself - or that you are a failure or have let yourself or your family down: not at all 7. Trouble concentrating on things, such as reading the newspaper or watching television: not at all 8. Moving or speaking so slowly that other people could have noticed. Or the opposite - being so fidgety or restless that you have been moving around a lot more than usual: not at all 9. Thoughts that you would be better off or of hurting yourself in some way: not at all Total score: 0 Depression Screening Interpretation: Negative Depression Screening Done: Yes 84202 - PHQ-9 Billing: Yes Source: Developed by Drs. Stefano Jeong, Shaunna Edgar, Yves Luciano and colleagues, with an educational olivier from [employer] Thrive Questionnaire Date Thrive assessed: 12/21/23 I am a: Patient What is your living situation today?: I have a steady place to live Within the past 12 months, did the food you bought not last and you didn't have the money to get more?: Never true Within the past 12 months, did you worry whether your food would run out before you got money to buy more?: Never true Do you have trouble paying for medicines?: No Do you have trouble getting transportation to medical appointments?: No Do you have trouble paying your heating and electricity bill?: No Do you have trouble taking care of your child, family member or friend?: No Do you have trouble with day-to-day activities such as bathing, preparing meals, shopping, managing finances, etc.?: No Are you currently unemployed and looking for a job?: No Are you interested in more education?: No Please select the resources that you would like help with: None THRIVE Score: 0 AUDIT C Alcohol Use Questionnaire (AUDIT-C) 1. How often do you have a drink containing alcohol?: Never Total Score: 0 Score Reviewed/Action Taken: Yes CHELSEA-7 AMB Questionnaire CHELSEA-7 Date CHELSEA - 7 assessed: 12/21/23 Feeling nervous, anxious, or on edge: 1 = Several days Not being able to stop or control worryin = Not at all Worrying too much about different things: 0 = Not at all Trouble relaxin = Not at all Being so restless that it is hard to sit still: 0 = Not at all Becoming easily annoyed or irritable: 0 = Not at all Feeling afraid as if something awful might happen: 0 = Not at all Total CHELSEA-7 score (0-4 normal; 5-9 mild; 10-14 moderate; 15-21 severe): 1 Source: Developed by Drs. Stefano Jeong, Shaunna Edgar, Yves Luciano and colleagues, with an educational olivier from [employer] CHELSEA-7 Assessment Billing CHELSEA-7 Assessment Tool: CHELSEA-7 Assessment 12075 Review of Systems Const Denies chills, Denies headache(s) and Denies weight loss ENT Denies headache(s) Card Denies chest pain, Denies syncope, Denies irregular heart rhythm and Denies dyspnea Resp Denies chest congestion, Denies cough and Denies dyspnea GI Denies abdominal pain, Denies change in stool character, Denies nausea and Denies vomiting Musc Denies deformity and Denies joint swelling Neuro Denies syncope and Denies headache(s) Physical exam (Primary Care) Vital Signs: Last Vital Signs Pulse 81 12/21/23 14:28 BP 132/80 12/21/23 14:28 Pulse Ox 98 12/21/23 14:28 Oxygen Delivery Method Room Air 12/21/23 14:28 BMI result Body Mass Index 30.2 Tobacco/Smoking Status: Tobacco use Status Tobacco use date assessed 12/21/23 12/21/23 14:29 Patient Tobacco Use Status Never used Tobacco 12/21/23 14:29 e-Cigarette/Vaping Use Never Used 12/21/23 14:29 PHQ-9: PHQ-9 Score PHQ-9: Total score 0 12/21/23 15:08 Depression Screening Interpretation: Negative Thrive Assessment: Date of Thrive Assessment Date Thrive assessed 12/21/23 12/21/23 14:29 Const General: cooperative, comfortable, no acute distress and alert Neck Neck: Yes no lymphadenopathy Thyroid: Thyroid normal Resp Effort & Inspection: normal respiratory effort Auscultation: clear to auscultation bilaterally Percussion: percussion normal Cardio Jugular venous distension: no JVD Palpation: normal PMI Rate: regular rate Rhythm: regular rhythm Heart sounds: S1 normal heart sound present and S2 normal heart sound present GI Inspection: Yes normal to inspection Palpation (GI): No hepatosplenomegaly present Skin General skin exam: no rashes or lesions noted Extrem General: Yes no clubbing, cyanosis or edema Assessment and Plan Assessment & Plan (1) Depression: Code(s): F32.A - Depression, unspecified Plan: change rx to celexa Medications: New citalopram (Celexa) 20 mg PO DAILY 60 tabs 3RF Discontinued paroxetine HCl Discontinued Reason: None 40 mg PO DAILY 90 tabs 8RF Coding Level of Care Code Est Pt Level 3 (32051) Diagnoses Depression F32.A Additional Codes CHELSEA-7 Assessment Billing - CHELSEA-7 Assessment Tool: CHELSEA-7 Assessment 56892 ([id number])
== END 2023-12-21 14:46 | disposition home or self-care (01) ==
PROVIDERS: PCP Internal Medicine; Visit Provider Internal Medicine
DX: F33.9 Major depressive disorder, recurrent, unspecified (principal)
CPT/HCPCS: 99213

== ENCOUNTER 2023-12-22 16:01 | Outpatient (REF) | payer OTHER, SELFPAY ==
--- NOTE | ~2023-12-22 | MR_ITS ---
EXAMINATION: MR BREAST WITHOUT AND WITH CONTRAST, BILATERAL CLINICAL INFORMATION: Lobular neoplasia. Newly diagnosed LCIS left breast upper outer quadrant. Status post surgical excision. COMPARISON: Screening mammography 07/04/2023 and subsequent diagnostic imaging. TECHNIQUE: Imaging was performed with a dedicated breast coil. Prior to the administration of contrast, bilateral axial T1 and bilateral axial T2 weighted sequences were obtained. After the uneventful administration of?8 mL of Gadavist, dynamic contrast-enhanced VIBRANT series through the breasts in the axial plane were performed. Subtracted images were performed and reviewed. A delayed sagittal sequence through both breasts was acquired. Additionally, CAD post-processing, including maximum intensity projections, 3-D reconstructions and kinetic analysis, were performed an independent workstation and reviewed by the interpreting radiologist is a portion of this exam. FINDINGS: The breasts are comprised of extremely dense fibroglandular parenchyma. The tissue undergoes mild background enhancement. LEFT BREAST: Architectural distortion and nipple retraction with susceptibility artifact at 2-3 o'clock following surgical excision for LCIS. There is a 3 mm focus of non-mass enhancement at 2:30 (series 101 image 70/114) 2.5 cm from the nipple. This lies at the posterior inferior border of the lumpectomy bed. Appearance is indeterminate as scattered similar foci are noted throughout the remainder of the left breast. A short interval six-month followup is advised. RIGHT BREAST: There are multiple small, similar foci of non-mass enhancement. There is no suspicious mass or single dominant non-mass enhancement. No architectural distortion. A similar appearance to the left breast. There is no suspicious internal mammary chain or axillary adenopathy. A T2 bright subcentimeter liver lesion without enhancement (series 5 image 34/40). Favor cyst or small hemangioma. Additional less than 5 mm similar foci in the right lobe. No further evaluation required. MR/MR breast BI wo/w con IMPRESSION: 1. Status post left lumpectomy for LCIS. 2. A 3 mm focus of non-mass enhancement at the posterior inferior border of the lumpectomy site. 3. Multiple similar foci of non-mass enhancement throughout both breasts. 4. Several subcentimeter T2 bright nonenhancing liver masses. ASSESSMENT: LEFT BREAST: BI-RADS 3, probably benign findings. RIGHT BREAST: BI-RADS 3, probably benign findings. RECOMMENDATIONS: A repeat bilateral breast MRI in 6 months.
[2023-12-22] MEDS: gadobutroL 10 ML VIAL IVPUSH (17:58)
== END 2023-12-22 16:02 | disposition home or self-care (01) ==
LOC: HO.MRI 16:01
PROVIDERS: PCP Internal Medicine; Visit Provider Surgery
DX: D05.02 Lobular carcinoma in situ of left breast (principal); N60.92 Unspecified benign mammary dysplasia of left breast; R92.30 Dense breasts, unspecified; Z91.89 Other specified personal risk factors, not elsewhere classified
CPT/HCPCS: 77049; A9585

== ENCOUNTER 2024-01-19 09:53 | Outpatient (AMB) | payer OTHER, SELFPAY ==
[2024-01-19 10:01] VITALS: BP 127/78; PULSE 95; BMI 29.6
--- NOTE | 2024-01-19 10:01 | A.OFFVIS_ITS ---
Intake Vital Signs 01/19/24 10:01 Height 5 ft 4 in Weight 172 lb 6 oz BMI 29.6 BP 127/78 Blood Pressure Location Lt brachial Position Sitting Pulse 95 Intake Visit Reasons: MRI results Intake Note: Patient is seen in office for MRI results, following left breast lumpectomy. 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 Pathology revealed focal atypical lobular hyperplasia. Residual calcifications were noted in the postprocedure mammogram and surgical consultation was recommended. She subsequently underwent a left breast lumpectomy LOCalizer on 10/12/2023. 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 Medical oncology evaluation was recommended and she was seen by Dr. Elise and started on anastrozole 1 mg p.o. daily. She returns today to review the results of her recent MRI. This did reveal some non mass enhancement at the site of the previous surgery in the left breast. Several other smaller areas in the bilateral breasts were identified of non mass enhancement as well. This was regarded as low suspicion for malignancy (BI-RADS 3) and six-month follow-up MRI recommended. She denies a family history of breast problems or breast cancer. She is with 1 daughter, 29 years old. She did not breast feed. She was during the war in [place]. She currently reports some discomfort in the left breast at the site of the surgery but denies any new skin changes. [facility], [facility] Medical History Asthma Obesity Depression Surgical History History of lumpectomy of left breast (10/07/23) No pertinent past surgical history Family History Mother Skin cancer Father Stomach cancer Social History Housing: House Patient Tobacco Use Status: Never used Tobacco e-Cigarette/Vaping Use: Never Used Second Hand Smoke Exposure: No service: No Current occupational status: employed Cognitive needs: No Hearing needs: No Vision needs: Yes (reading glasses) Review of Systems Const All systems reviewed & are unremarkable except as noted in HPI and below Denies chills, Denies fever(s), Denies headache(s), Denies poor appetite and Denies weakness ENT Denies headache(s) Card Denies chest pain, Denies irregular heart rhythm, Denies palpitations and Denies dyspnea Resp Denies cough, Denies excessive phlegm production and Denies dyspnea GI Denies abdominal pain, Denies bloating, Denies change in bowel habits, Denies constipation, Denies heartburn, Denies diarrhea, Denies nausea and Denies vomiting Denies urinary frequency and Denies nipple discharge Musc Denies back pain, Denies muscle weakness and Denies numbness Skin/Breast Denies breast swelling, Reports breast pain, Denies breast mass, Denies changing lesions, Denies nipple discharge and Denies unusual bruising Neuro Denies headache(s), Denies numbness, Denies paresthesias and Denies weakness Psych Denies anxiety and Denies depression Endo Denies palpitations Giovanny/Lymph Denies lymphadenopathy Physical Exam Vital Signs: Last Vital Signs Pulse 95 01/19/24 10:01 BP 127/78 01/19/24 10:01 BMI result Body Mass Index 29.6 Const General: comfortable Nutritional Appearance: well nourished Orientation/consciousness: patient oriented x3 Limitations: no limitations Chest Other: Exam deferred Resp Effort & Inspection: normal respiratory effort Skin Other: Warm, dry, no rash Neuro General: patient oriented x3 Assessment & Plan Assessment & Plan (1) Abnormal MRI, breast: Code(s): R92.8 - Other abnormal and inconclusive findings on diagnostic imaging of breast (2) Lobular carcinoma in situ (LCIS) of left breast: Code(s): D05.02 - Lobular carcinoma in situ of left breast (3) At high risk for breast cancer: Code(s): Z91.89 - Other specified personal risk factors, not elsewhere classified Plan Patient returns to review the recent MRI results. Findings were low suspicion and repeat MRI recommended in 6 months. The images were reviewed in detail with the patient and her daughter today. Repeat MRI has been requested and she will return following this study for review of the MRI and examination. She expressed understanding and agrees with the plan. She is welcome to call sooner for any new concerns. Orders: Orders MR breast BI wo/w con 06/20/24 D05.02 - Lobular carcinoma in situ of left breast, R92.8 - Other abnormal and inconclusive findings on diagnostic imaging of breast, Z91.89 - Other specified personal risk factors, not elsewhere classified Coding Level of Care Code Est Pt Level 3 (33444) Diagnoses Abnormal MRI, breast R92.8 Lobular carcinoma in situ (LCIS) of left breast D05.02 At high risk for breast cancer Z91.89
== END 2024-01-19 10:14 | disposition home or self-care (01) ==
PROVIDERS: PCP Internal Medicine; Visit Provider Surgery
DX: R92.8 Other abnormal and inconclusive findings on diagnostic imaging of breast (principal); D05.02 Lobular carcinoma in situ of left breast; Z91.89 Other specified personal risk factors, not elsewhere classified
CPT/HCPCS: 99213

== ENCOUNTER → 2024-01-19 09:53 | Outpatient (BNVA) | payer OTHER, SELFPAY | PROVIDERS: PCP Internal Medicine; Visit Provider Surgery ==

== ENCOUNTER 2024-07-11 09:51 | Outpatient (AMB) | payer OTHER, SELFPAY ==
[2024-07-11 09:57] VITALS: BP 124/76; PULSE 84; O2SAT 96; BMI 28.5
--- NOTE | 2024-07-11 09:57 | MHC.PC.OV ---
Vital Signs 07/11/24 09:57 Height 5 ft 4 in Weight 166 lb BMI 28.5 BP 124/76 Blood Pressure Location Lt brachial Position Sitting Pulse 84 Pulse Source Pulse Oximeter Pulse Oximetry (%) 96 Oxygen Delivery Method Room Air Intake Visit Reasons: PE Rn Critical Care Required: No Accompanied by: Self / Same As Patient Allergies No Known Allergies Allergy (Verified 07/11/24 09:57) Medication List - Last Reconciled 07/11/24 by Vic Do MD albuterol sulfate 90 mcg/actuation (ProAir HFA) 2 puffs PO Q6H PRN anastrozole 1 mg PO DAILY citalopram (Celexa) 20 mg PO DAILY ondansetron 4 mg PO Q6H PRN Tobacco use date assessed: 12/21/23 Dental Screening Dental Screen Date: 12/21/23 HPI PE HPI Details depression and asthma; stable; compliant [facility] Medical History Asthma Obesity Depression Surgical History History of lumpectomy of left breast (10/07/23) No pertinent past surgical history Family History Mother Skin cancer Father Stomach cancer Social History (Updated 05/13/24 @ 15:06 by Castro Israel) Housing: House Patient Tobacco Use Status: Never used Tobacco e-Cigarette/Vaping Use: Never Used Second Hand Smoke Exposure: No service: No Current occupational status: employed Cognitive needs: No Hearing needs: No Vision needs: Yes (reading glasses) Questionnaire PHQ-9 Over the last 2 weeks, how often have you been bothered by any of the following problems? 1. Little interest or pleasure in doing things: not at all 2. Feeling down, depressed, or hopeless: not at all 3. Trouble falling or staying asleep, or sleeping too much: not at all 4. Feeling tired or having little energy: not at all 5. Poor appetite or overeating: not at all 6. Feeling bad about yourself - or that you are a failure or have let yourself or your family down: not at all 7. Trouble concentrating on things, such as reading the newspaper or watching television: not at all 8. Moving or speaking so slowly that other people could have noticed. Or the opposite - being so fidgety or restless that you have been moving around a lot more than usual: not at all 9. Thoughts that you would be better off or of hurting yourself in some way: not at all Total score: 0 Depression Screening Interpretation: Negative Depression Screening Done: Yes 93599 - PHQ-9 Billing: Yes Source: Developed by Drs. Stefano Jeong, Shaunna Edgar, Yves Luciano and colleagues, with an educational olivier from [employer]. Thrive Questionnaire Date Thrive assessed: 12/21/23 AUDIT C Alcohol Use Questionnaire (AUDIT-C) 1. How often do you have a drink containing alcohol?: Never Total Score: 0 Score Reviewed/Action Taken: Yes CHELSEA-7 AMB Questionnaire CHELSEA-7 Date CHELSEA - 7 assessed: 12/21/23 Source: Developed by Drs. Stefano Jeong, Shaunna Edgar, Yves Luciano and colleagues, with an educational olivier from [employer]. Review of Systems Const Denies chills, Denies fatigue, Denies headache(s) and Denies weight loss Eyes Denies change in vision, Denies diplopia and Denies eye pain ENT Denies vertigo, Denies dizziness, Denies headache(s) and Denies nasal discharge Card Denies chest pain, Denies rapid heart rate and Denies dyspnea on exertion Resp Denies chest congestion, Denies cough, Denies pain with cough and Denies dyspnea on exertion GI Denies abdominal pain, Denies hematochezia and Denies change in bowel habits Musc Denies myalgias, Denies arthralgias and Denies joint swelling Skin/Breast Denies lesions and Denies unusual bruising Neuro Denies vertigo, Denies dizziness, Denies headache(s) and Denies focal weakness Endo Denies fatigue Physical exam (Primary Care) Vital Signs: Last Vital Signs Pulse 84 07/11/24 09:57 BP 124/76 07/11/24 09:57 Pulse Ox 96 07/11/24 09:57 Oxygen Delivery Method Room Air 07/11/24 09:57 BMI result Body Mass Index 28.5 Tobacco/Smoking Status: Tobacco use Status Tobacco use date assessed 12/21/23 07/11/24 09:57 Patient Tobacco Use Status Never used Tobacco 07/11/24 09:57 e-Cigarette/Vaping Use Never Used 07/11/24 09:57 PHQ-9: PHQ-9 Score PHQ-9: Total score 0 07/11/24 10:02 Depression Screening Interpretation: Negative Thrive Assessment: Date of Thrive Assessment Date Thrive assessed 12/21/23 07/11/24 09:57 Const General: cooperative, healthy appearing and no acute distress Orientation/consciousness: oriented to person, oriented to place and oriented to time HENMT Head: Yes normal to inspection, Yes normocephalic and Yes atraumatic Mouth: Normal oral and palatal mucosa present and tongue normal Throat: Yes posterior oropharynx normal and Yes uvula midline Eyes General: appearance normal, both eyes and all related structures Neck Neck: Yes normal visual inspection, Yes full ROM and Yes no lymphadenopathy Thyroid: Thyroid normal Carotids: normal carotid upstroke Chest Chest palpation & inspection: normal inspection of the chest Resp Effort & Inspection: normal respiratory effort and able to speak in complete sentences Auscultation: clear to auscultation bilaterally Cardio Jugular venous distension: no JVD Palpation: normal PMI Rate: regular rate Rhythm: regular rhythm Heart sounds: S1 normal heart sound present and S2 normal heart sound present GI Inspection: Yes normal to inspection Palpation (GI): Soft to palpation and No hepatosplenomegaly present Auscultation: normal bowel sounds General: Yes no CVA tenderness Back/Spine/Pelvis Back: no CVA tenderness Skin General skin exam: no rashes or lesions noted Neuro General: oriented to person, oriented to place and oriented to time Extrem General: Yes normal to inspection and Yes full ROM Assessment and Plan Assessment & Plan (1) Physical exam: Code(s): Z00.00 - Encounter for general adult medical examination without abnormal findings Plan: stable; colonoscopy (2) Depression: Code(s): F32.A - Depression, unspecified Plan: stable; same rx (3) Asthma: Code(s): J45.909 - Unspecified asthma, uncomplicated Plan: stable; same rx Orders: Orders Complete Blood Count Auto Diff Today Z13.0 - Encounter for screening for diseases of the blood and blood-forming organs and certain disorders involving the immune mechanism Lipid Panel Today Z13.220 - Encounter for screening for lipoid disorders Comprehensive [place]. Panel Fast Today Z13.9 - Encounter for screening, unspecified Thyroid Stimulating Hormone Today Z13.29 - Encounter for screening for other suspected endocrine disorder Referrals Gastroenterology Referral Z12.11 - Encounter for screening for malignant neoplasm of colon Medications: Refilled citalopram (Celexa) 20 mg PO DAILY 60 tabs 2RF Coding Level of Care Code Est Pt Prev Care 40-64y(15643) Diagnoses Physical exam Z00.00 Depression F32.A Asthma J45.909
== END 2024-07-11 10:11 | disposition home or self-care (01) ==
PROVIDERS: PCP Internal Medicine; Visit Provider Internal Medicine
DX: Z00.00 Encounter for general adult medical examination without abnormal findings (principal); F32.A Depression, unspecified; J45.909 Unspecified asthma, uncomplicated
CPT/HCPCS: 99396

== ENCOUNTER 2024-07-26 14:55 | Outpatient (AMB) | payer OTHER, SELFPAY ==
--- NOTE | 2024-07-26 15:03 | A.OFFVIS_ITS ---
Vital Signs 07/26/24 15:07 Height 5 ft 4 in Weight 168 lb 4 oz BMI 28.9 BP 141/76 H Blood Pressure Location Lt brachial Position Sitting Pulse 83 Intake Visit Reasons: Breast MRI results Intake Note: Patient is seen in office for MRI results, following left breast lumpectomy. 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: Slicer Machine Operator Present Accompanied by: Daughter Allergies No Known Allergies Allergy (Verified 07/26/24 15:07) Medication List - Last Reconciled 07/29/24 by Arnoldo Cueva MD albuterol sulfate 90 mcg/actuation (ProAir HFA) 2 puffs PO Q6H PRN anastrozole 1 mg PO DAILY citalopram (Celexa) 20 mg PO DAILY ondansetron 4 mg PO Q6H PRN HPI Comments Details: 48-year-old female patient found to have a cluster of calcifications in the left breast in the retroareolar location, 12:00 o'clock and subsequently underwent a stereotactic guided core biopsy on 08/28/2023 at [facility] [place]. Pathology revealed focal atypical lobular hyperplasia. Residual calcifications were noted in the postprocedure mammogram and surgical consultation was recommended. She subsequently underwent a left breast lumpectomy LOCalizer on 10/12/2023. 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 Medical oncology evaluation was recommended and she was seen by Dr. Elise and started on anastrozole 1 mg p.o. daily. MRI performed on 12/22/2023 revealed non mass enhancement at the site of the previous surgery in the left breast. Several other smaller areas in the bilateral breasts were identified of non mass enhancement as well. This was regarded as low suspicion for malignancy (BI-RADS 3) and six-month follow-up MRI recommended. She underwent a repeat mammogram at [facility] on 07/04/2024. This revealed no MR specific evidence of malignancy with postoperative changes noted in the left breast (BI-RADS 2). Routine follow-up was recommended. She denies a family history of breast problems or breast cancer. She is with 1 daughter and did not breast feed. She was during the war in [place]. She denies any new breast symptoms in either breast. [facility] Medical History Asthma Obesity Depression Surgical History History of lumpectomy of left breast (10/07/23) No pertinent past surgical history Family History Mother Skin cancer Father Stomach cancer Social History Housing: House Patient Tobacco Use Status: Never used Tobacco e-Cigarette/Vaping Use: Never Used Second Hand Smoke Exposure: No service: No Current occupational status: employed Cognitive needs: No Hearing needs: No Vision needs: Yes (reading glasses) Review of Systems Const All systems reviewed & are unremarkable except as noted in HPI and below Denies chills, Denies fever(s), Denies headache(s), Denies poor appetite and Denies weakness ENT Denies headache(s) Card Denies chest pain, Denies irregular heart rhythm, Denies palpitations and Denies dyspnea Resp Denies cough, Denies excessive phlegm production and Denies dyspnea GI Denies abdominal pain, Denies bloating, Denies change in bowel habits, Denies constipation, Denies heartburn, Denies diarrhea, Denies nausea and Denies vomiting Denies urinary frequency and Denies nipple discharge Musc Denies back pain, Denies muscle weakness and Denies numbness Skin/Breast Denies breast swelling, Reports breast pain, Denies breast mass, Denies changing lesions, Denies nipple discharge and Denies unusual bruising Neuro Denies headache(s), Denies numbness, Denies paresthesias and Denies weakness Psych Denies anxiety and Denies depression Endo Denies palpitations Giovanny/Lymph Denies lymphadenopathy Physical Exam Vital Signs: Last Vital Signs Pulse 83 07/26/24 15:07 BP 141/76 H 07/26/24 15:07 BMI result Body Mass Index 28.9 Const General: no acute distress Nutritional Appearance: well nourished Orientation/consciousness: patient oriented x3 Chest Other: Left breast incision and a periareolar location at the upper outer quadrant is clean and intact. No new palpable mass, skin change, nipple discharge or enlarged lymph nodes. Right breast reveals no skin change, nipple discharge, palpable mass or enlarged lymph nodes. GI Inspection: Yes normal to inspection Skin Other: Warm, dry, no rash General skin exam: no rashes or lesions noted Neuro General: patient oriented x3 Extrem General: Yes no clubbing, cyanosis or edema Assessment & Plan Assessment & Plan (1) Lobular carcinoma in situ (LCIS) of left breast: Code(s): D05.02 - Lobular carcinoma in situ of left breast Category: Medical (2) Atypical lobular hyperplasia (ALH) of left breast: Code(s): N60.92 - Unspecified benign mammary dysplasia of left breast Category: Medical Plan 48-year-old female patient returning for breast evaluation after previous left breast lobular carcinoma in-situ and atypical lobular hyperplasia excised on 10/12/2023. Her most recent breast MRI revealed no suspicious findings and only postoperative change in the left breast. (BI-RADS 2). Examination today revealed no suspicious findings in either breast. I recommended yearly mammogram which she is now due for as well as breast MRI in 1 year. She should return in 6 months for repeat breast examination. She is welcome to call sooner for any new concerns. Orders: Orders MM diagnostic mammo BI 07/26/24 D05.02 - Lobular carcinoma in situ of left breast, N60.92 - Unspecified benign mammary dysplasia of left breast Coding Level of Care Code Est Pt Level 3 (41894) Diagnoses Lobular carcinoma in situ (LCIS) of left breast D05.02 Atypical lobular hyperplasia (ALH) of left breast N60.92
[2024-07-26 15:07] VITALS: BP 141/76; PULSE 83; BMI 28.9
== END 2024-07-26 15:19 | disposition home or self-care (01) ==
PROVIDERS: PCP Internal Medicine; Visit Provider Surgery
DX: D05.02 Lobular carcinoma in situ of left breast (principal); N60.92 Unspecified benign mammary dysplasia of left breast
CPT/HCPCS: 99213

== ENCOUNTER → 2024-07-26 14:55 | Outpatient (BNVA) | payer OTHER, SELFPAY | PROVIDERS: PCP Internal Medicine; Visit Provider Surgery ==

== ENCOUNTER 2024-12-02 09:33 | Day surgery (SDC) | payer OTHER, SELFPAY ==
--- OUTSIDE RECORDS SUMMARY | 2024-11-24 13:29 | XMS_ITS ---
Author Organization [facility] Address [address] [place] [phone] Care Team Providers Care Stitch Burnisher Name Role Phone Hi SOLIS, Vic Primary Care Provider Unavaila Alex Joaquin Jr REASON FOR VISIT inactive insurance Encounters Encounter Location Date Provider Diagnosis [facility] [address] [place] [phone] 09/29/2024 Alex Peralta Jr PLAN OF TREATMENT Next Appt Details Provider Name:Alex johnson Jr, 12/02/2024 12:30:00 PM, [address] [place] [address] , [place], [place], [phone],
--- OUTSIDE RECORDS SUMMARY | 2024-11-24 13:29 | XMS_ITS ---
Author Organization [facility] Address [address] [place] [phone] Care Team Providers Care Skiving Machine Operator Name Role Phone Hi SOLIS, Vic Primary Care Provider Unavaila Alex Joaquin Jr REASON FOR VISIT insurance hne Encounters Encounter Location Date Provider Diagnosis [facility] [address] [facility] [address] [place] [phone] 10/04/2024 Alex Peralta Jr PLAN OF TREATMENT Next Appt Details Provider Name:Alex johnson Jr, 12/02/2024 12:30:00 PM, [address] [place] [address] , [place], [place], [phone],
--- OUTSIDE RECORDS SUMMARY | 2024-11-24 13:29 | XMS_ITS | Patient Health Record ---
Author Organization [facility] Address [address] [place] [phone] Care Team Providers Care Hotel Administrative Assistant Name Role Phone Hi SOLIS, Vic Primary Care Provider Alex Khanna Jr Unavailable ALLERGIES No Known Allergies REASON FOR REFERRAL No Information MEDICATIONS Medication SIG (Take, Route, Frequency, Duration) Notes Start Date End Date Status Vitamin D-3 125 MCG (5000 UT) 1 tablet Orally Once a day for 30 day(s) Active Anastrozole 1 MG TAKE 1 TABLET BY CLYDE TH EVERY DAY Oral for 90 Active Citalopram Hydrobromide 20 MG TAKE 1 TABLET BY MOUTH EVERY DAY Oral for 90 Active Baclofen 10 MG TAKE 1 TABLET BY CLYDE TH AT BEDTIME NEEDED FOR MUSCLE SPASM Oral for 90 Active IMMUNIZATIONS Vaccine Route Administration Date Status Comme nts Influenza Unknown 11/21/2024 Refused SOCIAL HISTORY Tobacco Use: Social History Observation Description Date Details (start date - stop date) Never Smoker NA - NA Sex Assigned At : Social History Observation Description Sex Assigned At Unknown Tobacco Use/Smoking Question Answer Notes Patient is a nonsmoker Alcohol Screen Question Answer Notes Did you have a drink containing alcohol in the p ast year? No Points 0 Interpretation Negative PROBLEMS Problem Type ICD Code Onset Dates Problem Status W/U Status Risk SNOMED Code Notes Problem Colon cancer screening (Z12.11) Active confirmed 916925421 Problem Encounter for other preprocedural examination (Z01.818) Active confirmed 950146462 VITAL SIGNS Temperature 98.7 degrees Fahrenheit 11/21/2024 Blood pressure diastolic 00 mm Hg 11/21/2024 Height 5 ft 4 in in 11/21/2024 Blood pressure systolic 000 mm Hg 11/21/2024 Weight 163 lb 5 oz lbs 11/21/2024 BMI 28.03 kg/m2 11/21/2024 Encounters Encounter Location Date Provider Diagnosis [facility] [address] [place] [phone] 11/21/2024 Alex Peralta Jr Colon cancer screening Z12.11 and Encounter for other preprocedural examination Z01.818 [facility] [address] [place] [phone] 09/29/2024 Alex Peralta Jr [facility] [address] [place] [phone] 10/04/2024 Alex Peralta Jr ASSESSMENTS Encounter Date Diagnosis Assessment Notes Treatment Notes Treatment Clinical Notes 11/21/2024 Colon cancer screening (ICD-10 - Z12.11) 11/21/2024 Encounter for other preprocedural examination (ICD-10 - Z01.818) PLAN OF TREATMENT Future Test Test Name Order Date COLONOSCOPY 11/21/2024 Next Appt Details Provider Name:Alex johnson Jr, 12/02/2024 12:30:00 PM, [address] [place] [address] , [place], [place], [phone], Insurance Providers Payer Name Payer Address Payer Phone Subscriber Number Group Number Insured Name Patient Relationship to Insured Coverage Start Date Coverage End Date [facility] [address] [place] [phone] [id number] FRANK LOPEZ Self - patient is the insured MEDICAL (GENERAL) HISTORY Medical History History ICD Code Asthma Depression Elevated BMI Peptic ulcer disease Neck pain Surgical History Surgery Date(Month/Year) Left breast lumpectomy, atypical lobular hyperplasia 10/15
--- NOTE | 2024-12-01 09:09 | HO.ANESPROP2 ---
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) Atypical lobular hyperplasia (ALH) of left breast (Acute) Asthma (Acute) Physical exam (Acute) Obesity (Acute) Depression (Acute) Past Medical History Medical History (Updated 12/02/24 @ 09:45 by Miri Montana RN) Hx of breast cancer Asthma Obesity Depression Family History Family History Mother Skin cancer Father Stomach cancer Family history of problems with anesthesia: No Surgical History Surgical History History of lumpectomy of left breast (10/07/23) No pertinent past surgical history History of Problems with Anesthesia: No Social History Social History Housing: House Patient Tobacco Use Status: Never used Tobacco e-Cigarette/Vaping Use: Never Used Second Hand Smoke Exposure: No Advance Directives: No Advance Directives Information Provided: Yes service: No Current occupational status: employed Cognitive needs: No Hearing needs: No Vision needs: Yes (reading glasses) Meds Allergies Allergy/AdvReac Type Severity Reaction Status Date / Time No Known Allergies Allergy Verified 12/02/24 09:44 Home Medications ?Medication ?Instructions ?Recorded ?Confirmed ?Last Taken ?Type Vitamin D (with calcium) 100 mg PO DAILY 11/29/24 12/02/24 Unknown History Assessment and Plan Assessment Anesthesia Assessment: Chart Reviewed Final Anesthetic Review Family History of Problems with Anesthesia: No History of Problems with Anesthesia: No Documented by User: Osorio Wild MD 12/02/24 09:47 PMFSH Past Medical History Medical History (Updated 12/02/24 @ 09:45 by Miri Montana RN) Hx of breast cancer Asthma Obesity Depression Family History Family History Mother Skin cancer Father Stomach cancer Surgical History Surgical History History of lumpectomy of left breast (10/07/23) No pertinent past surgical history Social History Social History Housing: House Patient Tobacco Use Status: Never used Tobacco e-Cigarette/Vaping Use: Never Used Second Hand Smoke Exposure: No Advance Directives: No Advance Directives Information Provided: Yes service: No Current occupational status: employed Cognitive needs: No Hearing needs: No Vision needs: Yes (reading glasses) Meds Allergies Allergy/AdvReac Type Severity Reaction Status Date / Time No Known Allergies Allergy Verified 12/02/24 09:44 Home Medications ?Medication ?Instructions ?Recorded ?Confirmed ?Last Taken ?Type Vitamin D (with calcium) 100 mg PO DAILY 11/29/24 12/02/24 Unknown History Exam Airway Mallampati Class: II TM Dist: >3cm Neck ROM: Full Assessment and Plan Assessment Anesthesia Assessment: Anesthesia Plan Discussed Final Anesthetic Review NPO: Yes ASA Class: II Final Preanesthetic Review: No Changes in Pt Med Stat, Meds/Allgs Chart Reviewed, Consent Obtained/Reviewed and Anes Risks/Benef Reviewed Patient Risk: Low Procedure Risk: Low Anesthetic Plan Anesthetic Plan: TIVA Disposition: Standard PACU
--- OUTSIDE RECORDS SUMMARY | 2024-12-02 09:38 | XMS_ITS ---
Author Organization [facility] Address [address] [place] [phone] Care Team Providers Care Regulatory Coordinator Name Role Phone Hi SOLIS, Vic Primary Care Provider Alex Khanna Jr Unavailable [phone] ALLERGIES No Known Allergies REASON FOR VISIT Patient presents today for a colon screening MEDICATIONS Medication SIG (Take, Route, Frequency, Duration) [...] Problem Colon cancer screening (Z12.11) Active confirmed [id number] Problem Encounter for other preprocedural examination (Z01.818) Active confirmed 834059249 VITAL SIGNS BMI 28.03 kg/m2 11/21/2024 Blood pressure systolic 000 mm Hg 11/21/20 24 Blood pressure diastolic 00 mm Hg 024 Height 5 ft 4 in in 11/21/2024 Temperature 98.7 degrees Fahrenheit 11/21/20 24 Weight 163 lb 5 oz lbs 11/21/2024 Encounters Encounter Location Date Provider Diagnosis [facility] [address] [place] [address] 11/21/2024 Alex Peralta Jr Colon cancer screening Z12.11 and Encounter for other preprocedural examination Z01.818 ASSESSMENTS Encounter Date Diagnosis Assessment Notes Treatment Notes Treatment Clinical Notes 11/21/2024 Colon cancer screening (ICD-10 - Z12.11) 11/21/2024 Encounter for other preprocedural examination (ICD-10 - Z01.818) PLAN OF TREATMENT Future Test Test Name Order Date COLONOSCOPY 11/21/2024 Next Appt Details Follow Up: 1 Year, Reason: Provider Name:Alex johnson Jr, 12/02/2024 11:00:00 AM, [address] [place] [address] , [place], [place], [phone], Progress Notes * Examination Category Sub-Category Detail Notes General Examination GENERAL APPEARANCE: in no ac [place] distress HEAD: normocephalic EYES: sclera non-icteric NECK/THYROID: no lymphadenopathy HEART: S1, S2 normal, no mu rmurs CHEST: normal shape and exp ansion LUNGS: clear to auscultatio n bilaterally ABDOMEN: soft, nontender, non distended, bowel sounds present, no organomegaly SKIN: anicteric EXTREMITIES: no clubbing, cyanosi s, or edema PSYCH: cognitive function i ntact ORAL CAVITY: mucosa moist
--- OUTSIDE RECORDS SUMMARY | 2024-12-02 09:38 | XMS_ITS | Patient Health Record ---
Author Organization [facility] Address [address] [place] [phone] Care Team Providers Care Management Consulting Name Role Phone Hi SOLIS, Vic Primary [...] Problem Colon cancer screening (Z12.11) Active confirmed [id number] Problem Encounter for other preprocedural examination (Z01.818) Active confirmed 728440038 VITAL SIGNS Temperature 98.7 degrees Fahrenheit 11/21/2024 Blood pressure diastolic 00 mm Hg 11/21/2024 Height 5 ft 4 in in 11/21/2024 Blood pressure systolic 000 mm Hg 11/21/2024 Weight 163 lb 5 oz lbs 11/21/2024 BMI 28.03 kg/m2 11/21/2024 Encounters Encounter Location Date Provider Diagnosis [facility] [place] [address] [place] [phone] 12/02/2024 Alex Peralta Jr [facility] [address] [place] [phone] 11/21/2024 Alex Peralta Jr Colon cancer screening Z12.11 and Encounter for other preprocedural examination Z01.818 [facility] [address] [place] [phone] 09/29/2024 Alex Peralta Jr [facility] [address] [place] [phone] 10/04/2024 Alex Peralta Jr ASSESSMENTS Encounter Date Diagnosis Assessment Notes Treatment Notes Treatment Clinical Notes 11/21/2024 Colon cancer screening (ICD-10 - Z12.11) 11/21/2024 Encounter for other preprocedural examination (ICD-10 - Z01.818) PLAN OF TREATMENT Future Test Test Name Order Date COLONOSCOPY 11/21/2024 Next Appt Details Provider Name:Alex johnson Jr, 12/02/2024 11:00:00 AM, [address] [place] [address] , [place], [place], [phone], Insurance Providers Payer Name Payer Address Payer Phone Subscriber Number Group Number Insured Name Patient Relationship to Insured Coverage Start Date Coverage End Date [facility] [address] [facility] [place] [phone] [id number] FRANK LOPEZ Self - patient is the insured MEDICAL (GENERAL) HISTORY Medical History History ICD Code Asthma Depression Elevated BMI Peptic ulcer disease Neck pain Surgical History Surgery Date(Month/Year) Left breast lumpectomy, atypical lobular hyperplasia 10/15
--- OUTSIDE RECORDS SUMMARY | 2024-12-02 09:38 | XMS_ITS ---
Author Organization [facility] Address [address] [place] [phone] Care Team Providers Care Sales Development Executive Name Role Phone Hi SOLIS, Vic Primary Care Provider Unavaila Alex Joaquin Jr [phone] REASON FOR VISIT insurance hne Encounters Encounter Location Date Provider Diagnosis [facility] [address] [facility] [address] [place] [phone] 10/04/2024 Alex Peralta Jr PLAN OF TREATMENT Next Appt Details Provider Name:Alex johnson Jr, 12/02/2024 11:00:00 AM, [address] [place] [address] , [place], [place], [phone],
--- OUTSIDE RECORDS SUMMARY | 2024-12-02 09:38 | XMS_ITS ---
Author Organization [facility] Address [address] [place] [phone] Care Team Providers Care Emissions Technician Name Role Phone Hi SOLIS, Vic Primary Care Provider UnavailAlex Church Jr REASON FOR VISIT screening Encounters Encounter Location Date Provider Diagnosis [facility] [place] [address] [place] [phone] 12/02/2024 Alex Peralta Jr PLAN OF TREATMENT Next Appt Details Provider Name:Alex johnson Jr, 12/02/2024 11:00:00 AM, [address] [place] [address], [phone],
[2024-12-02 09:45] VITALS: BP 143/77; PULSE 91; RESP 15; TEMP 36.7; O2SAT 98; BMI 27.5
[2024-12-02] MEDS: Lactated Ringers 1,000 ML 100 ML IVCONT (09:56)
--- NOTE | 2024-12-02 10:11 | MHC.SHP ---
Pre-Procedural Eval Section A - 24 Hr Update-Section A only Date of Service: 12/02/24 The patient is an INPATIENT: No The patient has been examined within 24 hours of the surgical procedure. The History & Physical has been completed within 30 days and I have reviewed it.: Yes Section B - Complete if H&P > 30 days Chief Complaint: screening Allergies: Allergies Allergy/AdvReac Type Severity Reaction Status Date / Time No Known Allergies Allergy Verified 12/02/24 09:44 Plan I have reviewed the history and physical and performed a pertinent physical examination on my patient. No changes have occurred unless specified. Time Spent With Patient Time: Total time managing care of this patient today ____ minutes.
[2024-12-02 10:43] VITALS: BP 106/66; PULSE 75; RESP 15; TEMP 36.6; O2SAT 100
[2024-12-02 10:58] VITALS: BP 142/77; PULSE 69; RESP 16; TEMP 36.6; O2SAT 100
--- NOTE | 2024-12-02 10:58 | OP_ITS ---
DATE OF SERVICE: 12/02/2024 SURGEON: Alex Peralta MD INDICATIONS: Colon cancer screening. PREOPERATIVE DIAGNOSIS: POSTOPERATIVE DIAGNOSIS: PROCEDURE PERFORMED: Colonoscopy to the terminal ilium. ESTIMATED BLOOD LOSS: COMPLICATIONS: ANESTHESIA: Monitored anesthesia care. ASSISTANTS: SPECIMENS: DESCRIPTION OF PROCEDURE: A history and physical was performed. The risks and benefits of the procedure were explained to the patient. Informed consent was obtained. The patient was placed in the left lateral decubitus position. A digital rectal exam was performed and was found to be normal. The Olympus pediatric video colonoscope was introduced into the rectum and advanced to the cecum. The cecum was identified by transillumination, palpation, and identification of ileocecal valve. Examination was performed. The scope was removed. She tolerated the procedure well and was returned to the recovery area in stable condition. FINDINGS: The terminal ileum was examined and appeared normal. The visualized colonic mucosa was normal. The quality of the prep was good. Retroflexed examination showed some hypertrophic anal papillae and small internal hemorrhoids. No polyps were identified. IMPRESSION: Normal colonoscopy. RECOMMENDATION: 1. Follow up as needed. 2. Repeat colonoscopy is recommended in 10 years for average-risk individuals. MD TREVER Stearns/JOCE / [phone]
== END 2024-12-02 11:45 | disposition home or self-care (01) ==
PROVIDERS: PCP Internal Medicine; Visit Provider Internal Medicine Gastroenterology
PROC: 0DJD8ZZ Inspection of Lower Intestinal Tract, Via Natural or Artificial Opening Endoscopic (ICD-10-PCS; CPT 45378; principal; 2024-12-02 11:00)
DX: Z12.11 Encounter for screening for malignant neoplasm of colon (principal); K62.89 Other specified diseases of anus and rectum; K64.8 Other hemorrhoids; J45.909 Unspecified asthma, uncomplicated; Z79.899 Other long term (current) drug therapy
CPT/HCPCS: 45378; J2003; J2704

== ENCOUNTER 2025-01-26 15:43 | Outpatient (AMB) | payer OTHER, SELFPAY ==
--- NOTE | 2025-01-26 15:47 | MHC.OFFVIS ---
Vital Signs 01/26/25 15:52 Height 5 ft 4 in Weight 127 lb BMI 21.8 BP 135/93 H Blood Pressure Location Lt brachial Position Sitting Pulse 100 Intake Visit Reasons: 6 month Breast check up Intake Note: Patient is seen in office for 6 month follow up visit, breast exam. Pt c/o: denies any concerns or changes MRI:07/04/24 mm:08/31/24 Manager Construction Required: No Multi Spindle Operator: Multi Spindle Operator Present Accompanied by: Self / Same As Patient Allergies No Known Allergies Allergy (Verified 12/02/24 09:44) Medication List - Last Reconciled 01/26/25 by Arnoldo Cueva MD albuterol sulfate 90 mcg/actuation (ProAir HFA) 2 puffs PO Q6H PRN anastrozole 1 mg PO DAILY citalopram (Celexa) 20 mg PO DAILY ondansetron 4 mg PO Q6H PRN sulfamethoxazole-trimethoprim 800-160 mg (Bactrim DS) 1 tab PO BID [Vitamin D (with calcium) 100 mg PO DAILY] HPI Comments Details: 49-year-old female patient found to have a cluster of calcifications in the left breast in the retroareolar location, 12:00 o'clock and subsequently underwent a stereotactic guided core biopsy on 08/28/2023 at [facility]. Pathology revealed focal atypical lobular hyperplasia. Residual calcifications were noted in the postprocedure mammogram and surgical consultation was recommended. She subsequently underwent a left breast lumpectomy LOCalizer on 10/12/2023. 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 Medical oncology evaluation was recommended and she was seen by Dr. Elise and started on anastrozole 1 mg p.o. daily. MRI performed on 12/22/2023 revealed non mass enhancement at the site of the previous surgery in the left breast. Several other smaller areas in the bilateral breasts were identified of non mass enhancement as well. This was regarded as low suspicion for malignancy (BI-RADS 3) and six-month follow-up MRI recommended. She underwent a repeat MRI at [facility] on 07/04/2024. This revealed no MR specific evidence of malignancy with postoperative changes noted in the left breast (BI-RADS 2). Routine follow-up was recommended. Her most recent mammogram dated 08/31/2024 with ultrasounds revealed no mammographic evidence of malignancy in either breast (BI-RADS 2). She denies a family history of breast problems or breast cancer. She is with 1 daughter and did not breast feed. She was during the war in [place]. She denies any new breast symptoms in either breast. [facility] Medical History Hx of breast cancer Asthma Obesity Depression Surgical History History of lumpectomy of left breast (10/07/23) No pertinent past surgical history Family History Mother Skin cancer Father Stomach cancer Social History Housing: House Patient Tobacco Use Status: Former Tobacco user e-Cigarette/Vaping Use: Never Used Second Hand Smoke Exposure: No service: No Current occupational status: employed Cognitive needs: No Hearing needs: No Vision needs: Yes (reading glasses) Review of Systems Const All systems reviewed & are unremarkable except as noted in HPI and below Physical Exam Vital Signs: Last Vital Signs Pulse 100 01/26/25 15:52 BP 135/93 H 01/26/25 15:52 BMI result Body Mass Index 21.8 Const General: no acute distress Nutritional Appearance: well nourished Orientation/consciousness: patient oriented x3 Chest Other: Left breast incision and a periareolar location at the upper outer quadrant is clean and intact. No new palpable mass, skin change, nipple discharge or enlarged lymph nodes. Right breast reveals no skin change, nipple discharge, palpable mass or enlarged lymph nodes. GI Inspection: Yes normal to inspection Skin Other: Warm, dry, no rash General skin exam: no rashes or lesions noted Neuro General: patient oriented x3 Extrem General: Yes no clubbing, cyanosis or edema Assessment & Plan Assessment & Plan (1) Lobular carcinoma in situ (LCIS) of left breast: Code(s): D05.02 - Lobular carcinoma in situ of left breast Category: Medical (2) Atypical lobular hyperplasia (ALH) of left breast: Code(s): N60.92 - Unspecified benign mammary dysplasia of left breast Category: Medical Plan 49-year-old female patient returning for breast evaluation after previous left breast lobular carcinoma in-situ and atypical lobular hyperplasia excised on 10/12/2023. Her most recent breast MRI performed at [facility] on 07/04/2024 revealed no suspicious findings and only postoperative change in the left breast. (BI-RADS 2). Mammogram dated 08/31/2024 at [facility] also reveals no mammogram specific evidence of malignancy (BI-RADS 2). Examination today revealed no suspicious findings in either breast. She will continue with the anastrozole as recommended by Dr. Elise and continue twice yearly breast exams, as well as yearly mammogram and breast MRIs. She will follow up in 6 months, sooner p.r.n.. Coding Level of Care Code Est Pt Level 3 (33241) Complex EM visit Add On G2211 Diagnoses Lobular carcinoma in situ (LCIS) of left breast D05.02 Atypical lobular hyperplasia (ALH) of left breast N60.92
[2025-01-26 15:52] VITALS: BP 135/93; PULSE 100; BMI 21.8
--- OUTSIDE RECORDS SUMMARY | 2025-01-26 19:07 | XMS_ITS | Patient Health Record ---
Author Organization [facility] Address [address] [place] [phone] Care Team Providers Care Managed Care Specialist Name Role Phone Hi SOLIS, Vic Primary Care Provider Alex Khanna Jr Unavailable [phone] Allergies No Known Allergies Reason For Referral No Information Medications Medication SIG (Take, Route, Frequency, Duration) Notes [...] FOR MUSCLE SPASM Oral for 90 Active Immunizations Vaccine Route Administration Date Status Comme nts Influenza Unknown 11/21/2024 Refused Social History Tobacco Use: Social History Observation Description Date Details (start date - stop date) Never Smoker NA - NA Tobacco Use/Smoking Question Answer Notes Patient is a nonsmoker Alcohol Screen Question Answer Notes Did you have a drink containing alcohol in the p ast year? No Points 0 Interpretation Negative Problems Problem Type SNOMED Code ICD Code Onset Dates Problem Status W/U Status Risk Notes Problem 779728742 Colon cancer screening (Z12.11) Active confirmed Problem 302880739 Encounter for other preprocedural examination (Z01.818) Active confirmed Vital Signs Temperature 98.7 degrees Fahrenheit 11/21/2024 Blood pressure diastolic 00 mm Hg 11/21/2024 Height 5 ft 4 in in 11/21/2024 Blood pressure systolic 000 mm Hg 11/21/2024 Weight 163 lb 5 oz lbs 11/21/2024 BMI 28.03 kg/m2 11/21/2024 Encounters Encounter Location Date Provider Diagnosis [facility] [address] [place], [place] [phone] 12/02/2024 Alex Peralta Jr Colon cancer screening Z12.11 [facility] [address] [place] [phone] 11/21/2024 Alex Peralta Jr Colon cancer screening Z12.11 and Encounter for other preprocedural examination Z01.818 [facility] [address] [place] [phone] 09/29/2024 Alex Peralta Jr [facility] [address] [place] [phone] 10/04/2024 Alex Peralta Jr Assessments Encounter Date Diagnosis (ICD Code) Assessment Notes Treatment Notes Treatment Clinical Notes Section Notes 12/02/2024 Colon cancer screening (ICD-10 - Z12.11) 11/21/2024 Colon cancer screening (ICD-10 - Z12.11) We discussed colonoscopy today. We discussed risks and benefits of the procedure today. She understands these and agrees to proceed. 11/21/2024 Encounter for other preprocedural examination (ICD-10 - Z01.818) We discussed colonoscopy today. We discussed risks and benefits of the procedure today. She understands these and agrees to proceed. Plan Of Treatment Future Test Test Name Order Date COLONOSCOPY 11/21/2024 Insurance Providers Payer Name Payer Address Payer Phone Subscriber Number Group Number Insured Name Patient Relationship to Insured Coverage Start Date Coverage End Date [facility] [address] [place] [phone] [id number] FRANK LOPEZ Self - patient is the insured Medical (General) History Medical History History ICD Code Asthma Depression Elevated BMI Peptic ulcer disease Neck pain Surgical History Surgery Date(Month/Year) Left breast lumpectomy, atypical lobular hyperplasia 10/15
--- OUTSIDE RECORDS SUMMARY | 2025-01-26 19:07 | XMS_ITS ---
Author Organization [facility] Address [address] [place] [phone] Care Team Providers Care Electric Frying Pan Repairer Name Role Phone Hi SOLIS, Vic Primary Care Provider Alex Khanna Jr REASON FOR VISIT insurance hne Encounters Encounter Location Date Provider Diagnosis [facility] [address] [place] [phone] 10/04/2024 Alex Peralta Jr Plan Of Treatment No Information Progress Notes * MARGO FALLONB:1974 (49 yo F)Acc No.[id number]:10/04/2024 Patient:?FRANK FALLON :1975???Age:49 Y???Sex:Female Address:[address] [place] [address], [address] * true * Date:? Generated for Jose wood/Marley/eTransmitting on:?01/26/2025 07:07 PM EST
--- OUTSIDE RECORDS SUMMARY | 2025-01-26 19:07 | XMS_ITS ---
Author Organization [facility] Address [address] [place] [phone] Care Team Providers Care Inter[employer] Teacher Name Role Phone Hi SOLIS, Vic Primary Care Provider Alex Khanna Jr Unavailable [phone] Allergies No Known Allergies REASON FOR VISIT Patient presents today for a colon screening Medications Medication SIG (Take, Route, Frequency, Duration) [...] Problem Status W/U Status Risk Notes Problem [id number] Colon cancer screening (Z12.11) Active confirmed Problem [id number] Encounter for other preprocedural examination (Z01.818) Active confirmed Vital Signs Temperature 98.7 degrees Fahrenheit 11/21/20 24 Blood pressure systolic 000 mm Hg 11/21/20 24 Blood pressure diastolic 00 mm Hg 024 Height 5 ft 4 in in 11/21/2024 Weight 163 lb 5 oz lbs 11/21/2024 BMI 28.03 kg/m2 11/21/2024 Encounters Encounter Location Date Provider Diagnosis [facility] [address] [place] [phone] 11/21/2024 Alex Peralta Jr Colon cancer screening Z12.11 and Encounter for other preprocedural examination Z01.818 Assessments Encounter Date Diagnosis (ICD Code) Assessment Notes Treatment Notes Treatment Clinical Notes Section Notes 11/21/2024 Colon cancer screening (ICD-10 - [...] Appt Details Follow Up: 1 Year, Reason: Progress Notes * MITESH FALLONADOB:1974 (49 yo F)Acc No.[id number]:11/21/2024 Progress Notes Patient:?ANACYNTHIAAMBIKAFRANK WORKMAN Provider:?Alex Peralta MD :1975???Age:49 Y???Sex:Female D ate:11/21/2024 Address:[address] [place] [address] Pcp:Vic Do MD Subjective: * Chief Complaints: * ???1. Patient presents today for a colon screening. * HPI: ???New symptom(s):? The patient is a pleasant 49-year-old woman seen today for her preoperative colonoscopy visit. She has no previous history of colonoscopy and has no rectal bleeding or change in her bowel habits. She does report a history of peptic ulcer disease in the past and currently uses [id number]-[id number] antacids as needed for upper GI symptoms. * ROS:?General/Constitutional:?Change in appetite?denies.?Fatigue?denies.?ENT:?Patient denies?difficulty swallowing.?Respiratory:?Patient denies?shortness of breath.?Cardiovascular:?Patient denies?chest pain.?Gastrointestinal:?Comments?See HPI for details.?Genitourinary:?Difficulty urinating?denies.?Incontinence?denies.?Musculoskeletal:?Patient denies?muscle aches.?Skin:?Patient denies?pruritis.?Neurologic:?Patient denies?low back pain.?Psychiatric:?Patient denies?mental or physical abuse.? * Medical History:?Asthma, Dep ression, Elevated BMI, Peptic ulcer disease, Neck pain. * Surgical History:?Left breas t lumpectomy, atypical lobular hyperplasia 10/15. * Family History:?Father: dece ased.?Mother: alive, diagnosed with Heart disease.? No family history of liver cancer or colon cancer. Father of stomach cancer. * Social History:?Tobacco Use:?Tobacco Use/Smoking?Patient is a?nonsmoker.?Drugs/Alcohol:?Alcohol Screen?Did you have a drink containing alcohol in the past year??No,?Points?0,?Interpretation?Negative.?Miscellaneous:?Marital status: . Occupation: works full-time. * Medications:?Taking Vitamin D-3 125 MCG (5000 UT) Tablet 1 tablet Orally Once a day, Taking Anastrozole 1 MG Tablet TAKE 1 TABLET BY MOUTH EVERY DAY Oral , Taking Citalopram Hydrobromide 20 MG Tablet TAKE 1 TABLET BY MOUTH EVERY DAY Oral , Taking Baclofen 10 MG Tablet TAKE 1 TABLET BY MOUTH AT BEDTIME NEEDED FOR MUSCLE SPASM Oral , Medication List reviewed and reconciled with the patient * Allergies:?N.K.D.A. Objective: * Vitals:?Wt: 163 lb 5 oz, Ht: 5 ft 4 in, BMI:28.03 Index, BP: 000/00 mm Hg, Temp: 98.7. * Examination: ???General Examination: ?GENERAL APPEARANCE:?in no acute distress.?HEAD:?normocephalic.?EYES:?sclera non-icteric.?ORAL CAVITY:?mucosa moist.?NECK/THYROID:?no lymphadenopathy.?SKIN:?anicteric.?HEART:?S1, S2 normal, no murmurs.?LUNGS:?clear to auscultation bilaterally.?CHEST:?normal shape and expansion.?ABDOMEN:?soft, nontender, nondistended, bowel sounds present, no organomegaly .?EXTREMITIES:?no clubbing, cyanosis, or edema.?PSYCH:?cognitive function intact.? Assessment: * Assessment: 1.?Encounter for other prepr ocedural examination - Z01.818 (Primary)?2.?Colon cancer screening - Z12.11? We discussed colonoscopy tod navid. We discussed risks and benefits of the procedure today. She understands these and agrees to proceed. Plan: * Treatment: * Immunizations:? Influenza (Not administered - Refused: Patient decision) * Procedure Codes:?3017F COLOR ECTAL CA SCREEN DOC REV, G9903 Pt scrn tbco id as non user, G9745 DOC RSN FOR NOT SCREEN/REC F/U HBP * Preventive Medicine:? ??Counseling:?Care goal follow-up plan:?Above Normal BMI Follow-up?Giving encouragement to exercise,?BMI management provided?Yes.? * Follow Up:?1 Year * * Sign off status: Completed true * Provider:?Alex Peralta MD Date:?1 Generated for Luis Ei nina/Marley/eTransmitting on:?01/26/2025 07:07 PM EST History and Physical Notes * HPI (History of Present Illness) Category Sub-Category Detail Notes Category Not es New symptom(s) The patient i s a pleasant 49-year-old woman seen today for her preoperative colonoscopy visit. She has no previous history of colonoscopy and has no rectal bleeding or change in her bowel habits. She does report a history of peptic ulcer disease in the past and currently uses [id number]-vazzuvr antacids as needed for upper GI symptoms. Examination Category Sub-Category Detail Notes Category Not es General Examination GENERAL APPEARANCE: in no acute di stress HEAD: normocephalic EYES: sclera non-icteric NECK/THYROID: no lymphadenopathy HEART: S1, S2 normal, no mu rmurs CHEST: normal shape and exp ansion LUNGS: clear to auscultatio n bilaterally ABDOMEN: soft, nontender, non distended, bowel sounds present, no organomegaly SKIN: anicteric EXTREMITIES: no clubbing, cyanosi s, or edema PSYCH: cognitive function i ntact ORAL CAVITY: mucosa moist
--- OUTSIDE RECORDS SUMMARY | 2025-01-26 19:07 | XMS_ITS ---
Author Organization [facility] Address [address] [place] [phone] Care Team Providers Care Medical Communication Specialist Name Role Phone Hi SOLIS, Vic Primary Care Provider Alex Khanna Jr [phone] REASON FOR VISIT screening Encounters Encounter Location Date Provider Diagnosis [facility] Outpatient [address] [place] [phone] 12/02/2024 Alex Peralta Jr Colon cancer screening Z12.11 Assessments Encounter Date Diagnosis (ICD Code) Assessment Notes Treatment Notes Treatment Clinical Notes Section Notes 12/02/2024 Colon cancer screening (ICD-10 - Z12.11) Plan Of Treatment No Information Progress Notes * MARGO FALLONB:1974 (49 yo F)Acc No.[id number]:12/02/2024 COLON WITH MAC Patient:?FRANK FALLON Provider:?Alex Peralta MD :1975???Age:49 Y???Sex:Female D ate:12/02/2024 Address:[address] [place] [address] Pcp:Vic Do MD Subjective: * Chief Complaints: * ???1. Screening. * Medical History:? Objective: * Vitals:? Assessment: * Assessment: 1.?Colon cancer screening - Z12.11 (Primary)??? Plan: * Treatment: * Procedure Codes:?97380 DIAGN OSTIC COLONOSCOPY, 0528F RCMND FLW-UP 10 YRS DOCD * * The named appointment provid er may or may not be the originator of this progress note, and it is not deemed complete until electronically signed by the appointment provider. Sign off status: Pending * Provider:?Alex Peralta MD Date:?0 12/02/2024 Generated for Jose wood/aMrley/Ashley on:?01/26/2025 07:07 PM EST
== END 2025-01-26 16:00 | disposition home or self-care (01) ==
PROVIDERS: PCP Internal Medicine; Visit Provider Surgery
DX: D05.02 Lobular carcinoma in situ of left breast (principal); N60.92 Unspecified benign mammary dysplasia of left breast
CPT/HCPCS: 99213

== ENCOUNTER 2025-08-01 15:43 | Outpatient (AMB) | payer OTHER, SELFPAY ==
--- OUTSIDE RECORDS SUMMARY | 2024-12-02 07:00 | XMS_ITS ---
Author Organization [facility] Address [address] [place] [phone] Care Team Providers Care Pulpwood Buyer Name Role Phone Hi SOLIS, Vic Primary Care Provider Alex Khanna Jr REASON FOR VISIT screening Encounters Encounter Location Date Provider Diagnosis [facility] [address] [place] [phone] 12/02/2024 Alex Peralta Jr Colon cancer screening Z12.11 Assessments Encounter Date Diagnosis (ICD Code) Assessment Notes Treatment Notes Treatment Clinical Notes Section Notes 12/02/2024 Colon cancer screening (ICD-10 - Z12.11) Plan Of Treatment No Information Progress Notes * MARGO FALLONB:1974 (49 yo F)Acc No.[id number]:12/02/2024 COLON WITH MAC Patient: Frankie MULTANIJI FRANK Provider: Stephanie Peralta MD :1975 A ge:49 Y S ex:Female Date:12/02/2024 Address:[address] [place], [place] [phone] Pcp:Vic Do MD Subjective: * Chief Complaints: * 1 . Screening. * Medical History: Objective: * Vitals: Assessment: * Assessment: 1. C olon cancer screening - Z12.11 (Primary) Plan: * Treatment: * Procedure Codes: 4 5378 DIAGNOSTIC COLONOSCOPY, 0528F RCMND FLW-UP 10 YRS DOCD * * The named appointment provid er may or may not be the originator of this progress note, and it is not deemed complete until electronically signed by the appointment provider. Sign off status: Pending * Provider: Stephanie Peralta MD Date: 0 12/02/2024 Generated for Jose wood/Marley/Ashley on: 0 08/01/2025 05:54 PM EDT
--- NOTE | 2025-08-01 15:49 | MHC.OFFVIS ---
Vital Signs 08/01/25 16:08 Height 5 ft 4 in Weight 174 lb BMI 29.9 BP 131/75 Blood Pressure Location Lt brachial Position Sitting Pulse 81 Intake Visit Reasons: 6 month Breast check up Intake Note: Patient is seen in office 6 month follow up visit, breast exam. 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 Required: No Maxillofacial Prosthetics Dentist: Maxillofacial Prosthetics Dentist Present Accompanied by: Self / Same As Patient Allergies No Known Allergies Allergy (Verified 12/02/24 09:44) Medication List - Last Reconciled 08/07/25 by Arnoldo Cueva MD albuterol sulfate 90 mcg/actuation (ProAir HFA) 2 puffs PO Q6H PRN anastrozole 1 mg PO DAILY citalopram (Celexa) 20 mg PO DAILY ondansetron 4 mg PO Q6H PRN sulfamethoxazole-trimethoprim 800-160 mg (Bactrim DS) 1 tab PO BID [Vitamin D (with calcium) 100 mg PO DAILY] HPI Comments Details: 49-year-old female patient found to have a cluster of calcifications in the left breast in the retroareolar location, 12:00 o'clock and subsequently underwent a stereotactic guided core biopsy on 08/28/2023 at [facility]. Pathology revealed focal atypical lobular hyperplasia. Residual calcifications were noted in the postprocedure mammogram and surgical consultation was recommended. She subsequently underwent a left breast lumpectomy LOCalizer on 10/12/2023. 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 Medical oncology evaluation was recommended and she was seen by Dr. Elise and started on anastrozole 1 mg p.o. daily. MRI performed on 12/22/2023 revealed non mass enhancement at the site of the previous surgery in the left breast. Several other smaller areas in the bilateral breasts were identified of non mass enhancement as well. This was regarded as low suspicion for malignancy (BI-RADS 3) and six-month follow-up MRI recommended. She underwent a repeat MRI at [facility] on 07/04/2024. This revealed no MR specific evidence of malignancy with postoperative changes noted in the left breast (BI-RADS 2). Routine follow-up was recommended. Her most recent mammogram dated 08/31/2024 with ultrasounds revealed no mammographic evidence of malignancy in either breast (BI-RADS 2). She denies a family history of breast problems or breast cancer. She is with 1 daughter and did not breast feed. She was during the war in [place]. She denies any new breast symptoms in either breast. [facility] Medical History Hx of breast cancer Asthma Obesity Depression Surgical History History of colonoscopy (~12/02/24) History of lumpectomy of left breast (10/07/23) No pertinent past surgical history Family History Mother Skin cancer Father Stomach cancer Social History Housing: House Patient Tobacco Use Status: Former Tobacco user e-Cigarette/Vaping Use: Never Used Second Hand Smoke Exposure: No service: No Current occupational status: employed Cognitive needs: No Hearing needs: No Vision needs: Yes (reading glasses) Review of Systems Const All systems reviewed & are unremarkable except as noted in HPI and below Physical Exam Vital Signs: Last Vital Signs Pulse 81 08/01/25 16:08 BP 131/75 08/01/25 16:08 BMI result Body Mass Index 29.9 Const General: no acute distress Nutritional Appearance: well nourished Orientation/consciousness: patient oriented x3 Chest Other: Left breast incision and a periareolar location at the upper outer quadrant is clean and intact. No new palpable mass, skin change, nipple discharge or enlarged lymph nodes. Right breast reveals no skin change, nipple discharge, palpable mass or enlarged lymph nodes. GI Inspection: Yes normal to inspection Skin Other: Warm, dry, no rash General skin exam: no rashes or lesions noted Neuro General: patient oriented x3 Extrem General: Yes no clubbing, cyanosis or edema Assessment & Plan Assessment & Plan (1) Atypical lobular hyperplasia (ALH) of left breast: Code(s): N60.92 - Unspecified benign mammary dysplasia of left breast Category: Medical (2) Lobular carcinoma in situ (LCIS) of left breast: Code(s): D05.02 - Lobular carcinoma in situ of left breast Category: Medical (3) At high risk for breast cancer: Code(s): Z91.89 - Other specified personal risk factors, not elsewhere classified Category: Medical Plan 49-year-old female patient returning for breast evaluation after previous left breast lobular carcinoma in-situ and atypical lobular hyperplasia excised on 10/12/2023. Her most recent breast MRI performed at [place] on 07/04/2024 revealed no suspicious findings and only postoperative change in the left breast. (BI-RADS 2). Mammogram dated 08/31/2024 at [facility] also reveals no mammogram specific evidence of malignancy (BI-RADS 2). Examination today revealed no suspicious findings in either breast. She will continue with the anastrozole as recommended by Dr. Elise and continue twice yearly breast exams, as well as yearly mammogram and breast MRIs. She will follow up in 6 months, sooner p.r.n.. Orders: Orders MR breast BI wo/w con 08/01/25 D05.02 - Lobular carcinoma in situ of left breast, N60.92 - Unspecified benign mammary dysplasia of left breast, Z91.89 - Other specified personal risk factors, not elsewhere classified MM screening mammo BI 09/01/25 D05.02 - Lobular carcinoma in situ of left breast, N60.92 - Unspecified benign mammary dysplasia of left breast, Z91.89 - Other specified personal risk factors, not elsewhere classified Coding Level of Care Code Est Pt Level 3 (50924) Complex EM visit Add On G2211 Diagnoses Atypical lobular hyperplasia (ALH) of left breast N60.92 Lobular carcinoma in situ (LCIS) of left breast D05.02 At high risk for breast cancer Z91.89
[2025-08-01 16:08] VITALS: BP 131/75; PULSE 81; BMI 29.9
--- OUTSIDE RECORDS SUMMARY | 2025-08-01 17:54 | XMS_ITS | Patient Health Record ---
Author Organization [facility] Address [address] [place] [phone] Care Team Providers Care Lead Care Manager Name Role Phone Hi SOLIS, Vic Primary Care Provider Alex Khanna Jr Unavailable Allergies No Known Allergies Reason For Referral [...] Problem Status W/U Status Risk Notes Problem 052900157 Colon cancer screening (Z12.11) Active confirmed Problem 118411228 Encounter for other preprocedural examination (Z01.818) Active confirmed Vital Signs Temperature 98.7 degrees Fahrenheit 11/21/2024 Blood pressure diastolic 00 mm Hg 11/21/2024 Height 5 ft 4 in in 11/21/2024 Blood pressure systolic 000 mm Hg 11/21/2024 Weight 163 lb 5 oz lbs 11/21/2024 BMI 28.03 kg/m2 11/21/2024 Encounters Encounter Location Date Provider Diagnosis [facility] [address], [place] [phone] 12/02/2024 Alex Peralta Jr Colon cancer screening Z12.11 [facility] [address] [place] [phone] 11/21/2024 Alex Peralta Jr Colon cancer screening Z12.11 and Encounter for other preprocedural examination Z01.818 [facility] [address] [place] [phone] 09/29/2024 Alex Peralta Jr [facility] [address] [place] [phone] 10/04/2024 Alex Peralta Jr Assessments Encounter Date [...] Insured Coverage Start Date Coverage End Date [facility] [address] [place] [phone] [id number] FRANK LOPEZ Self - patient is the insured Medical (General) History Medical History History ICD Code Asthma Depression Elevated BMI Peptic ulcer disease Neck pain Surgical History Surgery Date(Month/Year) Left breast lumpectomy, atypical lobular hyperplasia 10/15
== END 2025-08-01 16:05 | disposition home or self-care (01) ==
LOC: HO.HGS 15:44
PROVIDERS: PCP Internal Medicine; Visit Provider Surgery
DX: N60.92 Unspecified benign mammary dysplasia of left breast (principal); D05.02 Lobular carcinoma in situ of left breast; Z91.89 Other specified personal risk factors, not elsewhere classified
CPT/HCPCS: 99213; G2211

== ENCOUNTER 2025-11-06 10:30 | Outpatient (AMB) | payer OTHER, SELFPAY ==
--- NOTE | 2025-11-06 10:40 | A.OFFPC_ITS ---
Vital Signs 11/06/25 10:41 Height 5 ft 4 in Weight 173 lb BMI 29.7 BP 160/80 H Blood Pressure Location Lt brachial Position Sitting Pulse 85 Pulse Source Pulse Oximeter Temp 97.1 F Temp Source Temporal Artery Scan Pulse Oximetry (%) 97 Oxygen Delivery Method Room Air Intake Visit Reasons: annual exam Intake Note: Patient is here today for a physical. 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: Not Required per policy Accompanied by: Self / Same As Patient Allergies No Known Allergies Allergy (Verified 11/06/25 10:41) Medication List - Last Reconciled 11/06/25 by Ruy Rees MD albuterol sulfate 90 mcg/actuation (ProAir HFA) 2 puffs PO Q6H PRN anastrozole 1 mg PO DAILY citalopram (Celexa) 20 mg PO DAILY ondansetron 4 mg PO Q6H PRN [Vitamin D (with calcium) 100 mg PO DAILY] Tobacco use date assessed: 11/06/25 Dental Screening Dental Screen Date: 11/06/25 Did you have a dental visit in the last 12 months?: Yes Did you have a dental problem in the last 6 months where you did not have access to dental care?: No Was dental information given to patient?: Patient has dentist HPI HPI Comments History of Present Illness Details The patient is a 50 year old female with PMH of Asthma, breast nodule, MDD, presenting as MARIAN from Dr. Do. The patient has a history of a precancerous breast condition, identified as left breast lobular carcinoma in situ and atypical lobular hyperplasia, for which she underwent an excision surgery in September 2023. She follows up with the breast surgery team every six months, with her last visit on August 01, 2025, and is scheduled for a follow-up MRI and mammogram in six months. She is currently taking anastrozole for this condition. The patient reports a history of hypercholesterolemia, for which she has been advised to make lifestyle changes to avoid starting medication. Her last lipid panel was in May of 2023. Her medical history also includes asthma, triggered occasionally by dust at work, for which she uses an albuterol inhaler. She also takes Celexa for depression and mood, and Zofran on an as-needed basis. For health maintenance, the patient underwent a colonoscopy in November of this year with a recommendation to follow up in 10 years. She previously smoked but has since quit. She has had at least two COVID vaccines but declines the annual flu vaccine due to a prior adverse reaction. She does not recall when her last tetanus shot was but believes it was more than 10 years ago. [facility] Medical History Hx of breast cancer Asthma Obesity Depression Surgical History History of colonoscopy (~12/02/24) History of lumpectomy of left breast (10/07/23) No pertinent past surgical history Family History Mother Skin cancer Father Stomach cancer Social History Housing: House Patient Tobacco Use Status: Former Tobacco user e-Cigarette/Vaping Use: Never Used Second Hand Smoke Exposure: Yes service: No Current occupational status: employed Cognitive needs: No Hearing needs: No Vision needs: Yes (glasses) Questionnaire PHQ-9 Over the last 2 weeks, how often have you been bothered by any of the following problems? 1. Little interest or pleasure in doing things: several days 2. Feeling down, depressed, or hopeless: several days 3. Trouble falling or staying asleep, or sleeping too much: nearly every day 4. Feeling tired or having little energy: nearly every day 5. Poor appetite or overeating: not at all 6. Feeling bad about yourself - or that you are a failure or have let yourself or your family down: not at all 7. Trouble concentrating on things, such as reading the newspaper or watching television: not at all 8. Moving or speaking so slowly that other people could have noticed. Or the opposite - being so fidgety or restless that you have been moving around a lot more than usual: not at all 9. Thoughts that you would be better off or of hurting yourself in some way: not at all Total score: 8 Depression Screening Interpretation: Positive Depression Screening Follow-up: Existing condition and In treatment Depression Screening Done: Yes Source: Developed by Drs. Stefano Jeong, ShaunnaYves Dumont and colleagues, with an educational olivier from [employer]. Thrive Questionnaire Date Thrive assessed: 11/06/25 I am a: Patient What is your living situation today?: I have a steady place to live Within the past 12 months, did the food you bought not last and you didn't have the money to get more?: Never true Within the past 12 months, did you worry whether your food would run out before you got money to buy more?: I choose not to answer this question Do you have trouble paying for medicines?: I choose not to answer this question Do you have trouble getting transportation to medical appointments?: I choose not to answer this question Do you have trouble paying your heating and electricity bill?: No Do you have trouble taking care of your child, family member or friend?: I choose not to answer this question Do you have trouble with day-to-day activities such as bathing, preparing meals, shopping, managing finances, etc.?: I choose not to answer this question Are you currently unemployed and looking for a job?: Yes Are you interested in more education?: No Please select the resources that you would like help with: None Currently or been in a relationship where the following occur: No concerns reported THRIVE Score: 0 AUDIT C Alcohol Use Questionnaire (AUDIT-C) 1. How often do you have a drink containing alcohol?: Never Total Score: 0 CHELSEA-7 AMB Questionnaire CHELSEA-7 Date CHELSEA - 7 assessed: 11/06/25 Feeling nervous, anxious, or on edge: 0 = Not at all Not being able to stop or control worryin = Not at all Worrying too much about different things: 0 = Not at all Trouble relaxin = Not at all Being so restless that it is hard to sit still: 0 = Not at all Becoming easily annoyed or irritable: 0 = Not at all Feeling afraid as if something awful might happen: 0 = Not at all Total CHELSEA-7 score (0-4 normal; 5-9 mild; 10-14 moderate; 15-21 severe): 0 Source: Developed by Drs. Stefano Jeong, Yves Barry and colleagues, with an educational olivier from [employer]. Review of Systems Const Details: Positives besides what was mentioned in HPI are in BOLD Constitutional: No Weight Change, No Fever, No Chills, No Night Sweats, No Fatigue, No Malaise ENT/Mouth: No Hearing Changes, No Ear Pain, No Nasal Congestion, No Sinus Pain, No Hoarseness, No sore throat, No Rhinorrhea, No Swallowing Difficulty Eyes: No Eye Pain, No Swelling, No Redness, No Foreign Body, No Discharge, No Vision Changes Cardiovascular: No Chest Pain, No SOB, No PND, No Dyspnea on Exertion, No Orthopnea, No Claudication, No Edema, No Palpitations Respiratory: No Cough, No Sputum, No Wheezing, No Smoke Exposure, No Dyspnea Gastrointestinal: No Nausea, No Vomiting, No Diarrhea, No Constipation, No Pain, No Heartburn, No Anorexia, No Dysphagia, No Hematochezia, No Melena, No Flatulence, No Jaundice Genitourinary: No Dysmenorrhea, No DUB, No Dyspareunia, No Dysuria, No Urinary Frequency, No Hematuria, No Urinary Incontinence, No Urgency, No Flank Pain, No Urinary Flow Changes, No Hesitancy Musculoskeletal: No Arthralgias, No Myalgias, No Joint Swelling, No Joint Stiffness, No Back Pain, No Neck Pain, No Injury History Skin: No Skin Lesions, No Pruritis, No Hair Changes, No Breast/Skin Changes, No Nipple Discharge Neuro: No Weakness, No Numbness, No Paresthesias, No Loss of Consciousness, No Syncope, No Dizziness, No Headache, No Coordination Changes, No Recent Falls Psych: No Anxiety/Panic, No Depression, No Insomnia, No Personality Changes, No Delusions, No Rumination, No SI/HI/AH/VH, No Social Issues, No Memory Changes, No Violence/Abuse Hx., No Eating Concerns Heme/Lymph: No Bruising, No Bleeding, No Transfusions History, No Lymphadenopathy Endocrine: No Polyuria, No Polydipsia, No Temperature Intolerance Physical exam (Primary Care) Vital Signs: Last Vital Signs Temp 97.1 F 11/06/25 10:41 Pulse 85 11/06/25 10:41 BP 160/80 H 11/06/25 10:41 Pulse Ox 97 11/06/25 10:41 Oxygen Delivery Method Room Air 11/06/25 10:41 BMI result Body Mass Index 29.7 Tobacco/Smoking Status: Tobacco use Status Tobacco use date assessed 11/06/25 11/06/25 10:47 Patient Tobacco Use Status Former Tobacco user 11/06/25 10:47 e-Cigarette/Vaping Use Never Used 11/06/25 10:47 PHQ-9: PHQ-9 Score PHQ-9: Total score 8 11/06/25 11:28 Depression Screening Interpretation: Positive Depression Screening Follow-up: Ex isting condition and In treatment Thrive Assessment: Date of Thrive Assessment Date Thrive assessed 11/06/25 11/06/25 10:47 Currently or been in a relationship where the following occur: No concerns reported Const Other: Pertinent findings are in BOLD GENERAL APPEARANCE NAD, activity normal for age, well developed/ well nourished, no cyanosis, pallor, or diaphoresis. EYES lids/conjunctiva normal. EARS/NOSE/THROAT Mucous membranes moist, nares normal, lips/teeth normal uvula midline without oral pharyngeal erythema, exudate or swelling TMs normal bilaterally. No lymphangitis/lymphedema. HEAD/NECK normocephalic atraumatic, no facial trauma, neck is supple. RESPIRATORY respiratory effort normal, speaks in full sentences, no tripod position, no accessory muscle use. Lungs clear to auscultation without rhonchi, wheezes, rales CARDIAC Regular rate and rhythm, no edema. ABDOMINAL Soft, ND/NT. No evidence of fluid wave. No pulsatile masses on exam, rebound tenderness, Sullivan sign or pain over Mcburney's point. MUSCLES/EXTREMITIES No abnormal range of motion, no swelling. SKIN Warm, pink and dry. No rashes, dermatoses, petechiae or lesions. NEUROLOGICAL Speech is clear and appropriate. Normal level of consciousness. Gait and coordination are normal. 5/5 strength in all extremities. PSYCH Normal mood and affect. 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.5 mL IM Left Deltoid 0.5 mL [id number] 05/08/28 97593-709-84 [employer] Total Dispensed Waste 0.5 mL 0 % VIS Given Date VIS Provided VIS Publication Date 11/06/25 Single Vaccine 21 Eligibility Eligibility Date Funding Source Not [facility] Eligible 11/06/25 Private Coding Level of Care Code Est Pt Level 4 (02778) Diagnoses Healthcare maintenance Z00.00 Depression F32.A Lobular carcinoma in situ (LCIS) of left breast D05.02 Asthma J45.909 Elevated blood pressure reading R03.0 Time Spent (min) 30 Assessment & Plan Assessment & Plan (1) Healthcare maintenance: Code(s): Z00.00 - Encounter for general adult medical examination without abnormal findings Category: Medical Plan: CBC, CMP. Done recently. Will order Lipid panel, TSH, and vit D. Shingles 2 doses when >50 yo. Advised on getting it from Retail pharmacy. Patient agreeable. COVID: two doses. Completed. Tdap: Today. Pneumococcal: >50 yo. 18-49 with CKD, lung disease, weakened immune system, Heart disease, DM, cochlear implant. Will address during her next PE. Flu vaccine: Declined. Colonoscopy: 45-75. Done in 2024. Next due in 2034. AAA: 65 -[address]. NI[address] CT lun - 80. NI. HPV: Patient will re-establish care with her [facility] doctor. HIV: Ordered. HCV: Ordered. Dexa: At 63. Mammogram: Currently undergoing evaluation with breast surgery team with Mammogram and BReast MRI every 6 months. (2) Depression: Code(s): F32.A - Depression, unspecified Category: Medical Plan: Continue Citalopram. (3) Lobular carcinoma in situ (LCIS) of left breast: Comment: s/p resection in 09/2023. Code(s): D05.02 - Lobular carcinoma in situ of left breast Category: Medical Plan: Follows with Breast surgery every 6 months. Plan for Breast MRI and Mammogram yearly. Continue Anastrazole. (4) Asthma: Code(s): J45.909 - Unspecified asthma, uncomplicated Category: Medical Plan: Continue Albuterol as needed. (5) Elevated blood pressure reading: Code(s): R03.0 - Elevated blood-pressure reading, without diagnosis of hypertension Category: Medical Plan: - The patient's blood pressure was elevated at 160/80 mmHg during the visit. - Recommended the patient look into the DASH diet to help manage blood pressure. - Will re-check blood pressure at the next visit in three months to monitor for persistent hypertension. Plan I advised her about her elevated blood pressure reading of 160/80 mmHg and suggested she look into the DASH diet. We will re-evaluate her blood pressure in three months. I ordered several labs, including a fasting lipid panel, A1c, thyroid hormone level, as well as one-time screenings for HIV and hepatitis C, which she consented to. I informed her that the labs require fasting and can be done at the [facility] lab. We administered a tetanus shot today, as it has been more than 10 years since her last one. We also discussed that she could get the shingles vaccine at a retail pharmacy. She will return for her next annual physical in one year. Orders: Orders Hepatitis C Antibody Reflex Today Z00.00 - Encounter for general adult medical examination without abnormal findings HIV Ab/Ag Today Z00.00 - Encounter for general adult medical examination without abnormal findings Hemoglobin A1c Today Z00.00 - Encounter for general adult medical examination without abnormal findings Lipid Panel Today Z00.00 - Encounter for general adult medical examination without abnormal findings Vitamin D 25-OH Total Today Z00.00 - Encounter for general adult medical examination without abnormal findings TDaP Immunization Today Z23 - Encounter for immunization TSH reflex Free T4 Today Z00.00 - Encounter for general adult medical examination without abnormal findings
[2025-11-06 10:41] VITALS: BP 160/80; PULSE 85; TEMP 36.2; O2SAT 97; BMI 29.7
== END 2025-11-06 11:24 | disposition home or self-care (01) ==
LOC: HO.HMCH 10:31
PROVIDERS: PCP Internal Medicine; Visit Provider Internal Medicine
DX: Z00.00 Encounter for general adult medical examination without abnormal findings (principal); F32.A Depression, unspecified; D05.02 Lobular carcinoma in situ of left breast; J45.909 Unspecified asthma, uncomplicated; R03.0 Elevated blood-pressure reading, without diagnosis of hypertension; Z23 Encounter for immunization

== ENCOUNTER → 2025-11-06 10:30 | Outpatient (BNVA) | payer OTHER, SELFPAY | PROVIDERS: PCP Internal Medicine; Visit Provider Internal Medicine | DX: Z00.00 Encounter for general adult medical examination without abnormal findings (principal); D05.02 Lobular carcinoma in situ of left breast; F32.A Depression, unspecified; J45.909 Unspecified asthma, uncomplicated; R03.0 Elevated blood-pressure reading, without diagnosis of hypertension | CPT/HCPCS: 90471; 90715; 96127 ==